=== PATIENT | female | born 1975 | race African-American/Black ===

== ENCOUNTER 2017-12-28 17:43 | Emergency (ER) | payer BC ==
[2017-12-28 17:53] VITALS: BP 180/108
--- NOTE | 2017-12-28 18:03 | EDM.PDOC ---
ED HPI GENERAL MEDICAL PROBLEM - General Chief Complaint: Chest Pain Stated Complaint: CHEST PAIN Time Seen by Provider: 12/28/17 17:58 Source of Information: Reports: Patient History Limitations: Reports: No Limitations - History of Present Illness INITIAL COMMENTS - FREE TEXT/NARRATIVE: 42-year-old female of -[place] descent presents to the ED with severe left anterior precordial chest pain. She states it started yesterday and has progressed in intensity over the last 24 hours. Today it hurts badly to take a deep breath. Has a sharp strong pleuritic component to the pain with a deep aching pain all the time. He states it makes her feel short of breath on minimal exertion. She is complaining diffusely of left leg pain up to her groin as well. No known injuries to the lower extremity. Recent travel history 3 weeks ago which was fairly extensive and could put her at risk for DVT. She is also markedly overweight. Had previous gastric bypass surgery. Has no known coronary disease. She is a never smoker. Denies cough or sputum production. Denies any fever or chills. No trauma to the chest wall. Onset: Gradual Onset Date: 12/27/17 (Appreciated left precordial chest discomfort yesterday afternoon.) Duration: Hour(s):, Getting Worse Location: Reports: Chest (Left precordial chest she's able to localize the pain well.) Quality: Reports: Ache, Sharp, Stabbing, Other (Pleuritic component to the pain as it worsens with deep breathing.) Severity: Moderate Improves with: Reports: Rest (Rates the pain as 7-8 out of 10.) Worsens with: Reports: Other (Deep breathing), Movement Context: Denies: Activity, Exercise, Lifting, Sick Contact, Trauma, Other Associated Symptoms: Reports: Chest Pain. Denies: No Other Symptoms, Confusion , Cough, cough w sputum, Diaphoresis (See history of present illness), Headaches , Loss of Appetite, Malaise, Nausea/Vomiting, Rash, Seizure, Shortness of Breath , Syncope, Weakness Treatments DIVER TENDER: Reports: Other (see below) (None.) Chest Pain Score (Numeric/FACES): 9 - Related Data Allergies Allergy/AdvReac Type Severity Reaction Status Date / Time amoxicillin [Amoxicillin] Allergy Hives Verified 12/28/17 17:49 chocolate flavor Allergy Anaphylactic Verified 12/28/17 17:49 Shock erythromycin base Allergy Hives Verified 12/28/17 17:49 [Erythromycin Base] Penicillins Allergy Hives Verified 12/28/17 17:49 venom-honey bee Allergy Anaphylactic Verified 12/28/17 17:49 [bee venom (honey bee)] Shock prochlorperazine AdvReac Fatigue Verified 12/28/17 17:49 Home Meds: Home Meds Cyanocobalamin (Vitamin B12) [Vitamin B12] 1,000 mcg PO DAILY 10/08/14 [History] Multivitamin [Multivitamins] 1 cap PO DAILY 10/08/14 [History] Albuterol Inhaler. 2 puff INH ASDIRECTED PRN 10/25/14 [History] Ambien. 10 mg PO DAILY 10/25/14 [History] Flexeril. 10 mg PO TID PRN 10/25/14 [History] Flonase Inhaler. 2 puff NASBOTH DAILY PRN 10/25/14 [History] Potassium. 20 meq PO DAILY 10/25/14 [History] Tramadol. 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: Psychiatric History: Reports: Anxiety - Past Surgical History GI Surgical History: Reports: Cholecystectomy Other GI Surgeries/Procedures: GASTRIC BYPASS Female Surgical History: Reports: Section Musculoskeletal Surgical History: Reports: Shoulder Surgery Social & Family History - Tobacco Use Smoking Status *Q: Never Smoker Month/Year Tobacco Last Used: 2008 Second Hand Smoke Exposure: No - Caffeine Use Caffeine Use: Reports: None - Alcohol Use Days Per Week of Alcohol Use: 0 - Recreational Drug Use Recreational Drug Use: No - Living Situation & Occupation Living situation: Reports: Single Occupation: Employed ED ROS GENERAL - Review of Systems Review Of Systems: See Below Constitutional: Denies: Fever, Chills, Malaise, Weakness, Fatigue, Decreased Appetite, Weight Loss HEENT: Reports: No Symptoms Respiratory: Reports: Shortness of Breath, Pleuritic Chest Pain. Denies: Wheezing, Cough (Left precordial chest), Sputum, Hemoptysis Cardiovascular: Reports: Chest Pain, Dyspnea on Exertion. Denies: Blood Pressure Problem, Claudication, Edema, Lightheadedness, Orthopnea Endocrine: Reports: No Symptoms GI/Abdominal: Reports: Other (Has had previous gastric bypass surgery.) : Reports: Frequency, Incontinence (Stress-induced) Musculoskeletal: Reports: Back Pain, Joint Pain (Knee pain. Currently having pain throughout her left leg she states from her foot to her groin.) Skin: Reports: No Symptoms Neurological: Reports: No Symptoms Psychiatric: Reports: No Symptoms Hematologic/Lymphatic: Reports: No Symptoms Immunologic: Reports: No Symptoms ED EXAM, GENERAL - Physical Exam Exam: See Below Exam Limited By: No Limitations General Appearance: Alert, WD/WN, Moderate Distress (Patient is very anxious. Her pressure is markedly elevated at 160 11/30/10 at this time) Eye Exam: Bilateral Eye: Normal Inspection Throat/Mouth: Normal Inspection, Normal Lips, Normal Teeth, Normal Oropharynx Head: Atraumatic, Normocephalic Neck: Normal Inspection, Supple, Non-Tender, Full Range of Motion. No: Lymphadenopathy (L), Lymphadenopathy (R) Respiratory/Chest: No Respiratory Distress, Lungs Clear, Normal Breath Sounds, No Accessory Muscle Use, Other (Patient is exquisitely tender to palpation ribs 345 and 6 midclavicular line on the left side. It also travels along the third fourth and fifth ribs laterally towards the axilla. There is no rashes to correlate with shingles.) Cardiovascular: Normal Peripheral Pulses, Regular Rate, Rhythm, No Edema, No Gallop, No Murmur, Other (Hypertensive.) GI/Abdominal: Other (Patient has had previous gastric bypass. Abdomen is distended) Back Exam: Normal Inspection, Full Range of Motion. No: CVA Tenderness (L), CVA Tenderness (R) Extremities: Normal Inspection, Normal Range of Motion, Non-Tender, No Pedal Edema, Normal Capillary Refill Neurological: Alert, Oriented, CN II-XII Intact, Normal Cognition Psychiatric: Anxious Skin Exam: Warm, Dry, Intact, Normal Color, No Rash EKG INTERPRETATION EKG Date: 12/28/17 Time: 17:52 Rhythm: Other Rate (Beats/Min): 116 [place]: LAD-Left [place] Deviation (Left axis deviation of -9.) P-Wave: Enlarged (Consider left atrial hypertrophy pattern.) QRS: Normal ST-T: Normal QT: Normal EKG Interpretation Comments: Borderline ECG. Course - Vital Signs Last Recorded V/S: Last Vital Signs Temp 36.1 C 12/28/17 17:49 Pulse 118 H 12/28/17 17:49 Resp 18 12/28/17 17:49 BP 180/108 H 12/28/17 17:49 Pulse Ox 100 12/28/17 17:49 - Orders/Labs/Meds Orders: Active Orders 24 hr Category Date Time Status EKG Documentation Completion [RC] STAT Care 12/28/17 18:09 Active Chest 1V Frontal [CR] Stat Exams 12/28/17 18:08 Taken Pelvis 1V or 2V [CR] Stat Exams 12/28/17 18:53 Taken PRO B-TYPE NATRIUR PEPT,BNPPRO [CHEM] Stat Lab 12/28/17 18:10 Received Ketorolac [Toradol] Med 12/28/17 18:15 Active 30 mg IVPUSH ONETIME Sodium Chloride 0.9% [Normal Saline] 1,000 ml Med 12/28/17 18:15 Active IV ASDIRECTED Medication Orders Sodium Chloride (Normal Saline) 1,000 mls @ 150 mls/hr IV ASDIRECTED CRISPIN Last Admin: 12/28/17 18:30 Dose: 150 mls/hr Ketorolac Tromethamine (Toradol) 30 mg IVPUSH ONETIME CRISPIN Labs: Laboratory Tests 12/28/17 12/28/17 12/28/17 Range/Units 18:10 18:10 18:10 WBC 8.47 (3.98-10.04) K/mm3 RBC 4.35 (3.98-5.22) M/mm3 Hgb 13.0 (11.2-15.7) gm/L Hct 39.7 (34.1-44.9) % MCV 91.3 (79.4-94.8) fl MCH 29.9 (25.6-32.2) pg MCHC 32.7 (32.2-35.5) g/dl RDW Std Deviation 46.0 (36.4-46.3) fL Plt Count 374 H (182-369) K/mm3 MPV 9.2 L (9.4-12.3) fl Neutrophils % (Manual) 36 L (40-60) % Band Neutrophils % 0 (0-10) % Lymphocytes % (Manual) 55 H (20-40) % Atypical Lymphs % 0 % Monocytes % (Manual) 2 (2-10) % Eosinophils % (Manual) 7 H (0.7-5.8) % Basophils % (Manual) 0 L (0.1-1.2) Platelet Estimate Adequate Plt Morphology Comment Normal RBC Morph Comment Normal PT (8.0-13.0) SECONDS INR D-Dimer, Quantitative (0.19-0.59) mg/L Sodium 142 (136-145) mEq/L Potassium 3.3 L (3.5-5.1) mEq/L Chloride 104 (98-107) mEq/L Carbon Dioxide 29 (21-32) mEq/L Anion Gap 12.3 (5-15) BUN 22 H (7-18) mg/dL Creatinine 0.9 (0.55-1.02) mg/dL Est Cr Clr Drug Dosing 77.57 mL/min Estimated GFR (MDRD) > 60 (>60) mL/min BUN/Creatinine Ratio 24.4 H (14-18) Glucose 88 (74-106) mg/dL Calcium 8.8 (8.5-10.1) mg/dL Total Bilirubin 0.1 L (0.2-1.0) mg/dL AST 19 (15-37) U/L ALT 33 (14-59) U/L Alkaline Phosphatase 69 (46-116) U/L Creatine Kinase 114 (26-192) U/L CK-MB (CK-2) 0.6 (0-3.6) ng/ml Troponin I < 0.017 (0.00-0.056) ng/mL C-Reactive Protein 0.5 (<1.0) mg/dL Total Protein 6.8 (6.4-8.2) g/dl Albumin 3.4 (3.4-5.0) g/dl Globulin 3.4 gm/dL Albumin/Globulin Ratio 1.0 (1-2) 12/28/17 12/28/17 Range/Units 18:30 18:30 WBC (3.98-10.04) K/mm3 RBC (3.98-5.22) M/mm3 Hgb (11.2-15.7) gm/L Hct (34.1-44.9) % MCV (79.4-94.8) fl MCH (25.6-32.2) pg MCHC (32.2-35.5) g/dl RDW Std Deviation (36.4-46.3) fL Plt Count (182-369) K/mm3 MPV (9.4-12.3) fl Neutrophils % (Manual) (40-60) % Band Neutrophils % (0-10) % Lymphocytes % (Manual) (20-40) % Atypical Lymphs % % Monocytes % (Manual) (2-10) % Eosinophils % (Manual) (0.7-5.8) % Basophils % (Manual) (0.1-1.2) Platelet Estimate Plt Morphology Comment RBC Morph Comment PT 9.7 (8.0-13.0) SECONDS INR 0.91 D-Dimer, Quantitative 0.48 (0.19-0.59) mg/L Sodium (136-145) mEq/L Potassium (3.5-5.1) mEq/L Chloride (98-107) mEq/L Carbon Dioxide (21-32) mEq/L Anion Gap (5-15) BUN (7-18) mg/dL Creatinine (0.55-1.02) mg/dL Est Cr Clr Drug Dosing mL/min Estimated GFR (MDRD) (>60) mL/min BUN/Creatinine Ratio (14-18) Glucose (74-106) mg/dL Calcium (8.5-10.1) mg/dL Total Bilirubin (0.2-1.0) mg/dL AST (15-37) U/L ALT (14-59) U/L Alkaline Phosphatase (46-116) U/L Creatine Kinase (26-192) U/L CK-MB (CK-2) (0-3.6) ng/ml Troponin I (0.00-0.056) ng/mL C-Reactive Protein (<1.0) mg/dL Total Protein (6.4-8.2) g/dl Albumin (3.4-5.0) g/dl Globulin gm/dL Albumin/Globulin Ratio (1-2) Meds: Medications Generic Name Dose Route Start Last Admin Trade Name Freq PRN Reason Stop Dose Admin Sodium Chloride 1,000 mls @ 150 mls/hr 12/28/17 18:15 12/28/17 18:30 Normal Saline IV 150 mls/hr ASDIRECTED CRISPIN Administration Ketorolac Tromethamine 30 mg 12/28/17 18:15 Toradol IVPUSH ONETIME CRISPIN Discontinued Medications Generic Name Dose Route Start Last Admin Trade Name Freq PRN Reason Stop Dose Admin Hydromorphone HCl 1 mg 12/28/17 18:06 12/28/17 18:33 Dilaudid IVPUSH 12/28/17 18:07 1 mg ONETIME ONE Administration Lorazepam 0.5 mg 12/28/17 18:07 12/28/17 18:28 Ativan IVPUSH 12/28/17 18:08 0.5 mg ONETIME ONE Administration Meperidine HCl 50 mg 12/28/17 19:10 Demerol IVPUSH 12/28/17 19:11 ONETIME ONE Methylprednisolone Sodium Succinate 125 mg 12/28/17 18:55 Solu-Medrol IVPUSH 12/28/17 18:56 ONETIME ONE - Radiology Interpretation Free Text/Narrative:: 42-year-old female presents to the ED with left precordial chest pain 2 days. States it's become more intense today more constant. Does have a pleuritic component or it worsens with deep inspiration. Denies cough or sputum production fever or chills. One chest wall injury. ECG done by triage nurse shows sinus tachycardia at 1 16/m with no signs of ischemia. Examination reveals clear lung figueredo heart is sinus with any murmurs. Chest wall is exquisitely tender to palpation on ribs 34 and 5 and 6 on the left side midclavicular line. No shingles rash identified. Clinically she is suffering quite significant chest wall pain. Will be given Toradol 30 mg IV Ativan 0.5 mg IV as she is extremely anxious and blood pressure is quite high. Not known to be hypertensive. We'll also give Dilaudid 1 mg IV for pain relief. Plan routine labs in one view chest x-ray to be done. - Re-Assessments/Exams Free Text/Narrative Re-Assessment/Exam: 12/28/17 18:34 Portable chest x-ray reveals poor inspirational view with compression of the lungs. This gives the impression of diffuse vascular congestion pattern. A BNP done to ensure there is no evidence of congestive failure. 12/28/17 18:56 patient states that she really doesn't feel any better after IV analgesia. BP is improved to 151/89. She states that shakes quite badly in her upper thighs and groins and in her lower back. Therefore I did reexamine her in the standing position. She does have some diffuse mild facet joint inflammation or tenderness L4-L5 and L5-S1 bilaterally. There is marked tenderness throughout the inferior portion of the left sacroiliac joint on examination mild tenderness on the right SI joint. I will how one view of the pelvis done. We'll give her Solu-Medrol 125 mg IV to relieve inflammation. Demerol 50mg IV for further pain relief. 12/28/17 19:28 x-rays of the pelvis reveal mild sclerosis of the superior aspects of the acetabulum with early degenerative arthritic changes present. However no other disease process is evident in the SI joints or pelvis or proximal femurs. 12/28/17 19:29 labs are back.White count is 8.47 with 36% neutrophils and 55% lymphocytes suggesting a viral infection. Hemoglobin is 13.0 with hematocrit of 39.7. Platelet count is 374,000. PT is 9.7 with an INR of 0.91D dimer is normal at 0.48. Sodium is 142 with a potassium of 3.3. Chloride is 104 with a bicarbonate of 29. Anion gap is normal at 12.3 BUN is minimally elevated at 22 with a creatinine of 0.9. GFR remains greater than 60. Glucose is 88 calcium is 8.8. Liver function normal. Cardiac markers are also normal with a CK-MB fraction of 0.6 and a troponin I of less than 0.017. Therefore all this lady appears to be experiencing a viral syndrome. She has exquisite chest wall pain from ribs 345 and 6 left anterior chest. No evidence of any sinister pathology with a normal d-dimer and normal cardiac markers and normal ECG and normal chest x-ray. She has bilateral thigh pain and groin pain which seems to be musculoskeletal in origin. No apple juice identified on x-ray of the pelvis and proximal femurs. May be related to the viral syndrome. She does seem to have a component of sacroiliitis particularly involving the left sacroiliac joint. Therefore going to place her on anti-inflammatory Voltaren 50 mg 3 times daily for the next 10 days. Prednisone 20 mg a.m. and p.m. breakfast and supper for 5 days and then once a day in the morning for another 5 days to relieve inflammation of the chest wall as well as the sacroiliac joint. We'll also give her Percocet 5/3/25 milligram tabs one or 2 every 4-6 hours needed for pain relief 20 tabs. Will be given to excuse her from the work place for the next 3 days. Departure - Departure Time of Disposition: 19:39 Disposition: Home, Self-Care 01 Condition: Fair Clinical Impression: Viral syndrome, Non-cardiac chest pain, Anterior chest wall pain, Sacroiliitis Prescriptions: Diclofenac Sodium [Voltaren] 50 mg PO TID #30 tab.ec oxyCODONE HCl/Acetaminophen [Percocet 10-325 mg Tablet] 1 each PO Q4H PRN #20 tablet PRN Reason: pain relief predniSONE [Deltasone] 20 mg PO ASDIRECTED #15 tablet Referrals: Case Estrella MD [Primary Care Provider] - Forms: ED Department Discharge, ED Return to Work/School Form Additional Instructions: Evaluation the emergency room today in regards to left precordial chest pain for the last 2 days. Pain gradually worsening particular noted today. No known specific injury to the chest wall. Emanation reveals good air entry to both lung figueredo normal heart sounds a normal ECG. Chest x-ray also proved to be normal. You were found to be exquisitely tender to touch of ribs 345 and 6 on the left anterior chest wall which I believe is the source of the pain. This appears to be viral in origin with inflammation of the lining of the ribs in this area. This is been quite calm in the last several weeks through the ED. It often occurs when other viral infections are running rampant in the community such as influenza and RSV virus infections. Secondly diffuse lower extremity pain particularly in the thighs and groins and in the deep muscles of the legs. There was a component of inflammation of the sacroiliac joint worse on the left side as compared to the right which may be contributing to the deep aching pain in the right leg. No signs of muscle abnormalities were identified and lab work. The lab suggest a viral infection with a normal white count at 8.7 but 55 % lymphocytes were is normal would be 35. Treatment is therefore time to get better. Plenty of fluids. Suggest anti-inflammatory with Voltaren 50 mg 3 times daily for the next 10 days to take pain and inflammation out of your chest wall and you SI joints. Deltasone 20 mg with breakfast and supper for 5 days and then one in the morning only for another 5 days again to relieve pain and inflammation. Percocet 10/325 mg tablets one every 4-6 hours for pain not controlled by the anti-inflammatories alone. Will be required for the next 2-3 days until the anti-inflammatories are working well. Just off work until MondayJanuary 01. Follow-up with personal physician early next week if not markedly improved. - My Orders Last 24 Hours: My Active Orders 12/28/17 18:08 Chest 1V Frontal [CR] Stat 12/28/17 18:09 EKG Documentation Completion [RC] STAT 12/28/17 18:10 PRO B-TYPE NATRIUR PEPT,BNPPRO [CHEM] Stat 12/28/17 18:15 Ketorolac [Toradol] 30 mg IVPUSH ONETIME Sodium Chloride 0.9% [Normal Saline] 1,000 ml IV ASDIRECTED 12/28/17 18:53 Pelvis 1V or 2V [CR] Stat - Assessment/Plan Last 24 Hours: My Active Orders 12/28/17 18:08 Chest 1V Frontal [CR] Stat 12/28/17 18:09 EKG Documentation Completion [RC] STAT 12/28/17 18:10 PRO B-TYPE NATRIUR PEPT,BNPPRO [CHEM] Stat 12/28/17 18:15 Ketorolac [Toradol] 30 mg IVPUSH ONETIME Sodium Chloride 0.9% [Normal Saline] 1,000 ml IV ASDIRECTED 12/28/17 18:53 Pelvis 1V or 2V [CR] Stat
[2017-12-28] MEDS ORDERED: HYDROmorphone 0.5 MG/0.5 ML SYRINGE IVPUSH ONE (18:06)
[2017-12-28] MEDS ORDERED: LORazepam 2 MG/ML SDV IVPUSH ONE (18:07)
[2017-12-28] MEDS ORDERED: Sodium Chloride 0.9% 1,000 ML IV SCH (18:15)
[2017-12-28] MEDS ORDERED: Ketorolac 30 MG/ML SDV IVPUSH SCH (18:15)
[2017-12-28] MEDS ORDERED: methylPREDNISolone Sodium Succinate 125 MG/2 ML SDV IVPUSH ONE (18:55)
[2017-12-28] MEDS ORDERED: Meperidine PF 50 MG/ML Syringe IVPUSH ONE (19:10)
--- NOTE | 2017-12-29 07:58 | CR ---
Pelvis: AP view of the pelvis was obtained. Comparison: No prior pelvis or hip exam is available. IUD is incidentally noted within the pelvis. Joint spaces within both hips are maintained. Sacroiliac joints are within normal limits. No fracture or other bony abnormality is seen. Impression: 1. No abnormality is seen on AP pelvis exam. Diagnostic code #2
--- NOTE | 2017-12-29 07:58 | CR ---
Chest: Portable view of the chest was obtained. Comparison: Prior chest x-ray of 09/24/15. Heart size is within normal limits for portable technique. Tortuous thoracic aorta is seen. Nodule is identified within the right lung base which is stable likely representing granuloma. No acute lung densities are seen. Bony structures are grossly intact. Previous resection of the distal right clavicle is incidentally noted. Impression: 1. Nothing acute is seen on portable chest x-ray. Diagnostic code #2
== END 2017-12-28 20:00 | disposition home or self-care (01) ==
LOC: JD.ED 17:43
DX: R07.2 Precordial pain (principal); B34.9 Viral infection, unspecified; M46.1 Sacroiliitis, not elsewhere classified; I10 Essential (primary) hypertension; Z98.84 Bariatric surgery status; Z88.8 Allergy status to other drugs, medicaments and biological substances; Z88.1 Allergy status to other antibiotic agents; Z91.030 Bee allergy status; Z79.899 Other long term (current) drug therapy; Z90.49 Acquired absence of other specified parts of digestive tract
CPT/HCPCS: 36415; 71045; 72170; 80053; 82550; 82553; 83880; 84484; 85025; 85379; 85610; 86140; 93005; 96361; 96374; 96375; 99285; J1170; J1885; J2060; J2175; J2930; J7040; 93010; 99284-25

== ENCOUNTER 2018-04-01 19:35 | Emergency (ER) | payer BC ==
[2018-04-01] MEDS ORDERED: predniSONE 20 MG Tab PO ONE (20:59)
--- NOTE | 2018-04-01 21:06 | EDM.PDOC ---
ED HPI GENERAL MEDICAL PROBLEM - General Chief Complaint: General Stated Complaint: SWELLING IN FACE Time Seen by Provider: 04/01/18 20:26 Source of Information: Reports: Patient History Limitations: Reports: No Limitations - History of Present Illness INITIAL COMMENTS - FREE TEXT/NARRATIVE: The patient states that she was seen by the nurse discharge Dr. Horton on 2017. Skin tests were done, and the patient was diagnosed with allergic rhinitis. He prescribed the antihistamine eyedrop olopatadine, nasal Flonase, and recommended that the patient start taking a nonsedating antihistamine. The patient now presents with a complaint of painful swelling under her right eye and a painful swelling just anterior to her right ear, both since yesterday. She states that her face and eyes are itchy. She denies having a recent rash or hives. No symptoms of angioedema. No dyspnea or wheezing. She states that she took Claritin 2 days ago, Zyrtec yesterday, and Yamileth-D today. None helped. The patient states that she has had similar symptoms twice in the past, which prompted her to see Dr. Horton in the first place. Of note, the patient takes tramadol on an as-needed basis, for chronic right shoulder pain. The patient's PCP is Dr. Estrella. Face Pain Score (Numeric/FACES): 8 - Related Data Allergies Allergy/AdvReac Type Severity Reaction Status Date / Time amoxicillin [Amoxicillin] Allergy Hives Verified 12/28/17 17:49 chocolate flavor Allergy Anaphylactic Verified 12/28/17 17:49 Shock erythromycin base Allergy Hives Verified 12/28/17 17:49 [Erythromycin Base] Penicillins Allergy Hives Verified 12/28/17 17:49 venom-honey bee Allergy Anaphylactic Verified 12/28/17 17:49 [bee venom (honey bee)] Shock prochlorperazine AdvReac Fatigue Verified 12/28/17 17:49 Home Meds: Home Meds Multivitamin [Multivitamins] 1 cap PO DAILY 10/08/14 [History] Fluticasone Propionate [Flonase Allergy Relief] 2 spray INH DAILY 04/01/18 [ History] Potassium Chloride 20 meq PO DAILY 04/01/18 [History] predniSONE [Prednisone] 1 tab PO QPM #4 tablet 04/01/18 [Rx] traMADol HCl [Tramadol HCl] 50 mg PO Q6H PRN 04/01/18 [History] Past Medical History HEENT History: Reports: Allergic Rhinitis Genitourinary History: Reports: Acute Renal Failure (associated with gastric bypass surgery, since resolved) 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: Psychiatric History: Reports: Anxiety Endocrine/Metabolic History: Reports: Obesity/BMI 30+ - Past Surgical History GI Surgical History: Reports: Appendectomy (1980), Bariatric Procedure (Gastric bypass September 2016), Cholecystectomy Female Surgical History: Reports: Section (x 4), Tubal Ligation ( 2003) Musculoskeletal Surgical History: Reports: Shoulder Surgery (right, arthroscopic ) Social & Family History - Tobacco Use Smoking Status *Q: Former Smoker Years of Tobacco use: 24 Packs/Tins Daily: 0.4 Month/Year Tobacco Last Used: Quit Sep 2016 - Caffeine Use Caffeine Use: Reports: None - Alcohol Use Alcohol Use History: Yes Alcohol Use Frequency: Rarely - Recreational Drug Use Recreational Drug Use: No - Living Situation & Occupation Living situation: Reports: Single, with Family (3 kids) Occupation: Employed ([employer]) ED ROS GENERAL - Review of Systems Review Of Systems: ROS reveals no pertinent complaints other than HPI. ED EXAM, GENERAL - Physical Exam Exam: See Below Exam Limited By: No Limitations General Appearance: Alert, WD/WN, No Apparent Distress Eye Exam: Bilateral Eye: EOMI, Normal Inspection, PERRL Ears: Normal External Exam, Normal Canal, Hearing Grossly Normal, Normal TMs Nose: Normal Inspection, Normal Mucosa, No Blood Throat/Mouth: Normal Inspection, Normal Lips, Normal Teeth, Normal Gums, Normal Oropharynx, Normal Voice, No Airway Compromise Head: Normocephalic, Other (No visible swelling to the face, including under the right eye, as the patient suggest. There is a palpable firm nodule, measuring less than 1 cm diameter, just anterior to the right ear, consistent with a lymph node. It is quite tender.) Neck: Normal Inspection, Supple, Non-Tender, Full Range of Motion. No: Lymphadenopathy (L), Lymphadenopathy (R) Respiratory/Chest: No Respiratory Distress, Lungs Clear, Normal Breath Sounds, No Accessory Muscle Use Cardiovascular: Normal Peripheral Pulses, Regular Rate, Rhythm, No Edema, No Gallop, No JVD, No Murmur, No Rub Neurological: Alert, Normal Cognition Psychiatric: Normal Affect Skin Exam: Warm, Dry, Intact, Normal Color, No Rash Course - Orders/Labs/Meds Meds: Medications Discontinued Medications Generic Name Dose Route Start Last Admin Trade Name Emperatriz CHAO Reason Stop Dose Admin Prednisone 20 mg 04/01/18 20:59 04/01/18 21:10 Prednisone PO 04/01/18 21:00 20 mg ONETIME ONE Administration - Re-Assessments/Exams Free Text/Narrative Re-Assessment/Exam: 04/01/18 20:59 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 On examination, I see no facial swelling whatsoever, but there is a palpable lymph node anterior to her right ear. She complains of pruritus. It is unclear what the cause of the symptoms is, but for today's purposes, I will treat the patient with 20 mg oral prednisone, followed by 4 days of prednisone 10 mg. I would like the patient to follow-up with her Big Data Solutions Architect, Dr. Horton, this week, if possible. If not, I would like her to follow-up with her PCP, Dr. Estrella. Departure - Departure Time of Disposition: 21:01 Disposition: Home, Self-Care 01 Condition: Good Clinical Impression: Right facial swelling - Discharge Information Prescriptions: predniSONE [Prednisone] 1 tab PO QPM #4 tablet Referrals: Case Estrella MD [Primary Care Provider] - Javi Horton MD [Ordering Only Provider] - Forms: ED Department Discharge Additional Instructions: You were seen in the emergency room for swelling under your right eye and by your right ear, along with itchiness to your face and eyes. The cause of your symptoms is not clear, but may be related to an allergic reaction. You have been started on the steroid prednisone. A prescription for prednisone has been sent to the [facility], located in the [place] store. Take one tablet every evening, starting tomorrow evening, 04/02/2018, as prescribed. Continue to take your Flonase and a nonsedating antihistamine, such as Zyrtec, Yamileth, or Claritin, daily. Follow-up with your Big Data Solutions Architect, Dr. Horton, this week. If you are unable to get in to see Dr. Horton this week, please follow-up with your PCP, Dr. Estrella. If any other problems, please do not hesitate to return to the ER.
== END 2018-04-01 21:13 | disposition home or self-care (01) ==
LOC: JD.ED 19:35
DX: R22.0 Localized swelling, mass and lump, head (principal); F41.9 Anxiety disorder, unspecified; Z88.0 Allergy status to penicillin; Z88.1 Allergy status to other antibiotic agents; Z91.030 Bee allergy status; Z79.899 Other long term (current) drug therapy; Z87.891 Personal history of nicotine dependence
CPT/HCPCS: 99283; A9270

== ENCOUNTER 2018-10-29 23:51 | Emergency (ER) | payer BC ==
[2018-10-30 00:05] VITALS: BP 135/87
[2018-10-30] MEDS ORDERED: Sodium Chloride 0.9% 10 ML Syringe FLUSH PRN (00:12)
[2018-10-30] MEDS ORDERED: Ondansetron 4 MG/2 ML SDV IVPUSH ONE (00:12)
[2018-10-30] MEDS ORDERED: Ketorolac 30 MG/ML SDV IVPUSH ONE (00:13)
[2018-10-30] MEDS ORDERED: Sodium Chloride 0.9% 1,000 ML IV SCH (00:15)
--- NOTE | 2018-10-30 00:41 | EDM.PDOC ---
ED HPI GENERAL MEDICAL PROBLEM - General Chief Complaint: Abdominal Pain Stated Complaint: LOWER ABDOMINAL AND BACK PAIN LEFT SIDE Time Seen by Provider: 10/30/18 00:02 Source of Information: Reports: Patient History Limitations: Reports: No Limitations - History of Present Illness INITIAL COMMENTS - FREE TEXT/NARRATIVE: The patient presents with left lower abdominal pain that radiates to the left flank. She has nausea or vomiting. This started about 2 days ago. She has some dysuria. This started about 2 days ago. She has a history of a kidney stone that needed surgery last year. She has no chest pain or shortness of breath. She has no appendix or gallbladder. Onset: Gradual Duration: Day(s): (2) Location: Reports: Abdomen, Back Quality: Reports: Sharp Severity: Moderate Improves with: Reports: None Worsens with: Reports: None Associated Symptoms: Reports: Nausea/Vomiting. Denies: Chest Pain, Cough, Fever /Chills, Headaches, Shortness of Breath Lower Abdomen Pain Score (Numeric/FACES): 9 - Related Data Allergies Allergy/AdvReac Type Severity Reaction Status Date / Time amoxicillin [Amoxicillin] Allergy Hives Verified 10/30/18 00:06 chocolate flavor Allergy Anaphylactic Verified 10/30/18 00:06 Shock erythromycin base Allergy Hives Verified 10/30/18 00:06 [Erythromycin Base] Penicillins Allergy Hives Verified 10/30/18 00:06 venom-honey bee Allergy Anaphylactic Verified 10/30/18 00:06 [bee venom (honey bee)] Shock prochlorperazine AdvReac Fatigue Verified 10/30/18 00:06 Home Meds: Home Meds Multivitamin [Multivitamins] 1 cap PO DAILY 10/08/14 [History] Fluticasone Propionate [Flonase Allergy Relief] 2 spray INH DAILY 04/01/18 [ History] Potassium Chloride 20 meq PO DAILY 04/01/18 [History] traMADol HCl [Tramadol HCl] 50 mg PO Q6H PRN 04/01/18 [History] Hydrocodone/Acetaminophen [Hydrocodon-Acetaminophen 5-325] 1 - 2 each PO Q6HR PRN #20 tablet 10/30/18 [Rx] Lisinopril 40 mg PO DAILY 10/30/18 [History] Past Medical History HEENT History: Reports: Allergic Rhinitis Cardiovascular History: Reports: Hypertension Respiratory History: Reports: Other (See Below) Other Respiratory History: seasonal allergies Genitourinary History: Reports: Acute Renal Failure 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: Psychiatric History: Reports: Anxiety Endocrine/Metabolic History: Reports: Obesity/BMI 30+ - Past Surgical History GI Surgical History: Reports: Appendectomy, Bariatric Procedure, Cholecystectomy Female Surgical History: Reports: Section, Tubal Ligation Musculoskeletal Surgical History: Reports: Shoulder Surgery Social & Family History - Tobacco Use Smoking Status *Q: Never Smoker - Caffeine Use Caffeine Use: Reports: None - Recreational Drug Use Recreational Drug Use: No - Living Situation & Occupation Living situation: Reports: Single, with Family (3 kids) Occupation: Employed ([employer]) ED ROS GENERAL - Review of Systems Review Of Systems: See Below Constitutional: Reports: No Symptoms HEENT: Reports: No Symptoms Respiratory: Reports: No Symptoms Cardiovascular: Reports: No Symptoms Endocrine: Reports: No Symptoms GI/Abdominal: Reports: Abdominal Pain, Nausea, Vomiting. Denies: Diarrhea : Reports: No Symptoms Musculoskeletal: Reports: Back Pain (Left lower back) ED EXAM, GI/ABD - Physical Exam Exam: See Below Exam Limited By: No Limitations General Appearance: Alert, No Apparent Distress Ears: Normal External Exam Nose: Normal Inspection Head: Atraumatic, Normocephalic Neck: Normal Inspection Respiratory/Chest: No Respiratory Distress, Lungs Clear, Normal Breath Sounds Cardiovascular: Regular Rate, Rhythm, No Edema, No Murmur GI/Abdominal Exam: Soft, No Organomegaly, No Mass, Tender (Mild tenderness to the left lower abdomen) Back Exam: Other (Left lower back pain upon palpation) Course - Vital Signs Last Recorded V/S: Last Vital Signs Temp 96.5 F 10/30/18 00:03 Pulse 87 10/30/18 00:03 Resp 16 10/30/18 00:03 BP 135/87 10/30/18 00:03 Pulse Ox 99 10/30/18 00:03 - Orders/Labs/Meds Orders: Active Orders 24 hr Category Date Time Status Peripheral IV Care [RC] . DIRECTED Care 10/30/18 00:12 Active Abdomen Pelvis wo Cont [CT] Stat Exams 10/30/18 00:12 Taken Transvaginal Non OB [US] Stat Exams 10/30/18 01:50 Taken HYDROmorphone [Dilaudid] Med 10/30/18 03:51 Once 0.5 mg IVPUSH ONETIME ONE Sodium Chloride 0.9% [Normal Saline] 1,000 ml Med 10/30/18 00:15 Active IV ASDIRECTED Sodium Chloride 0.9% [Saline Flush] Med 10/30/18 00:12 Active 10 ml FLUSH ASDIRECTED PRN ED Antiemetic Medication Reflex [OM.PC] Stat Oth 10/30/18 00:12 Ordered Peripheral IV Insertion Adult [OM.PC] Stat Ot 10/30/18 00:12 Ordered Medication Orders Sodium Chloride (Normal Saline) 1,000 mls @ 125 mls/hr IV ASDIRECTED CRISPIN Last Admin: 10/30/18 00:24 Dose: 125 mls/hr Sodium Chloride (Saline Flush) 10 ml FLUSH ASDIRECTED PRN PRN Reason: Keep Vein Open Last Admin: 10/30/18 00:26 Dose: 10 ml Labs: Laboratory Tests 10/30/18 10/30/18 10/30/18 Range/Units 00:20 00:20 00:20 WBC 9.38 (3.98-10.04) K/mm3 RBC 4.18 (3.98-5.22) M/mm3 Hgb 11.6 (11.2-15.7) gm/L Hct 36.2 (34.1-44.9) % MCV 86.6 (79.4-94.8) fl MCH 27.8 (25.6-32.2) pg MCHC 32.0 L (32.2-35.5) g/dl RDW Std Deviation 46.4 H (36.4-46.3) fL Plt Count 408 H (182-369) K/mm3 MPV 8.5 L (9.4-12.3) fl Neut % (Auto) 47.6 (34.0-71.1) % Lymph % (Auto) 42.5 (19.3-51.7) % Crosby % (Auto) 5.9 (4.7-12.5) % Eos % (Auto) 3.5 (0.7-5.8) Baso % (Auto) 0.4 (0.1-1.2) % Neut # (Auto) 4.46 (1.56-6.13) K/mm3 Lymph # (Auto) 3.99 H (1.18-3.74) K/mm3 Crosby # (Auto) 0.55 H (0.24-0.36) K/mm3 Eos # (Auto) 0.33 (0.04-0.36) K/mm3 Baso # (Auto) 0.04 (0.01-0.08) K/mm3 Sodium 138 (136-145) mEq/L Potassium 3.6 (3.5-5.1) mEq/L Chloride 105 (98-107) mEq/L Carbon Dioxide 22 (21-32) mEq/L Anion Gap 14.6 (5-15) BUN 20 H (7-18) mg/dL Creatinine 0.8 (0.55-1.02) mg/dL Est Cr Clr Drug Dosing TNP Estimated GFR (MDRD) > 60 (>60) mL/min BUN/Creatinine Ratio 25.0 H (14-18) Glucose 85 (74-106) mg/dL Calcium 8.7 (8.5-10.1) mg/dL Total Bilirubin 0.2 (0.2-1.0) mg/dL AST 30 (15-37) U/L ALT 37 (14-59) U/L Alkaline Phosphatase 70 (46-116) U/L Total Protein 7.3 (6.4-8.2) g/dl Albumin 3.5 (3.4-5.0) g/dl Globulin 3.8 gm/dL Albumin/Globulin Ratio 0.9 L (1-2) Lipase 484 H (73-393) U/L HCG, Qual Negative (NEGATIVE) Urine Color (Yellow) Urine Appearance (Clear) Urine pH (5.0-8.0) Ur Specific [place] (1.005-1.030) Urine Protein (Negative) Urine Glucose (UA) (Negative) Urine Ketones (Negative) Urine Occult Blood (Negative) Urine Nitrite (Negative) Urine Bilirubin (Negative) Urine Urobilinogen (0.2-1.0) Ur Leukocyte Esterase (Negative) Urine RBC (0-5) /hpf Urine WBC (0-5) /hpf Ur Epithelial Cells (0-5) /hpf Calcium Oxalate Crystal (NONE) Urine Bacteria (FEW) /hpf Urine Mucus (FEW) /hpf 10/30/18 Range/Units 01:00 WBC (3.98-10.04) K/mm3 RBC (3.98-5.22) M/mm3 Hgb (11.2-15.7) gm/L Hct (34.1-44.9) % MCV (79.4-94.8) fl MCH (25.6-32.2) pg MCHC (32.2-35.5) g/dl RDW Std Deviation (36.4-46.3) fL Plt Count (182-369) K/mm3 MPV (9.4-12.3) fl Neut % (Auto) (34.0-71.1) % Lymph % (Auto) (19.3-51.7) % Crosby % (Auto) (4.7-12.5) % Eos % (Auto) (0.7-5.8) Baso % (Auto) (0.1-1.2) % Neut # (Auto) (1.56-6.13) K/mm3 Lymph # (Auto) (1.18-3.74) K/mm3 Crosby # (Auto) (0.24-0.36) K/mm3 Eos # (Auto) (0.04-0.36) K/mm3 Baso # (Auto) (0.01-0.08) K/mm3 Sodium (136-145) mEq/L Potassium (3.5-5.1) mEq/L Chloride (98-107) mEq/L Carbon Dioxide (21-32) mEq/L Anion Gap (5-15) BUN (7-18) mg/dL Creatinine (0.55-1.02) mg/dL Est Cr Clr Drug Dosing Estimated GFR (MDRD) (>60) mL/min BUN/Creatinine Ratio (14-18) Glucose (74-106) mg/dL Calcium (8.5-10.1) mg/dL Total Bilirubin (0.2-1.0) mg/dL AST (15-37) U/L ALT (14-59) U/L Alkaline Phosphatase (46-116) U/L Total Protein (6.4-8.2) g/dl Albumin (3.4-5.0) g/dl Globulin gm/dL Albumin/Globulin Ratio (1-2) Lipase (73-393) U/L HCG, Qual (NEGATIVE) Urine Color Yellow (Yellow) Urine Appearance Clear (Clear) Urine pH 6.0 (5.0-8.0) Ur Specific [place] 1.025 (1.005-1.030) Urine Protein Trace H (Negative) Urine Glucose (UA) Negative (Negative) Urine Ketones Trace H (Negative) Urine Occult Blood Trace-intact H (Negative) Urine Nitrite Negative (Negative) Urine Bilirubin Negative (Negative) Urine Urobilinogen 0.2 (0.2-1.0) Ur Leukocyte Esterase Negative (Negative) Urine RBC 0-5 (0-5) /hpf Urine WBC 0-5 (0-5) /hpf Ur Epithelial Cells 0-5 (0-5) /hpf Calcium Oxalate Crystal Few H (NONE) Urine Bacteria Few (FEW) /hpf Urine Mucus Few (FEW) /hpf Meds: Medications Generic Name Dose Route Start Last Admin Trade Name Freq PRN Reason Stop Dose Admin Sodium Chloride 1,000 mls @ 125 mls/hr 10/30/18 00:15 10/30/18 00:24 Normal Saline IV 125 mls/hr ASDIRECTED CRISPIN Administration Sodium Chloride 10 ml 10/30/18 00:12 10/30/18 00:26 Saline Flush FLUSH 10 ml ASDIRECTED PRN Administration Keep Vein Open Discontinued Medications Generic Name Dose Route Start Last Admin Trade Name Freq PRN Reason Stop Dose Admin Ketorolac Tromethamine 30 mg 10/30/18 00:13 10/30/18 00:25 Toradol IVPUSH 10/30/18 00:14 30 mg ONETIME ONE Administration Ondansetron HCl 4 mg 10/30/18 00:12 10/30/18 00:24 Zofran IVPUSH 10/30/18 00:13 4 mg ONETIME ONE Administration - Re-Assessments/Exams Free Text/Narrative Re-Assessment/Exam: 10/30/18 00:40 I ordered an IV NS at 125mL/hr, zofran 4mg IV, dilaudid 0.5mg IV, toradol 30mg IV, labs, UA and a CT of his abdomen and pelvis without contrast. 10/30/18 01:38 Her CBC and CMP look good. Her lipase is slightly elevated at 484. Her HCG is negative. He UA shows no UTI but she does have calcium oxilate crystals. I am waiting for the CT report. 10/30/18 01:[address] shows status post gastric bypass. Large left pelvic adnexal cysts measuring 6cm X 4.9cm. This is consistent with an ovarian cyst. This is new since the prior CT scan dated 08/24/2012, pelvic ultrasound suggested. IUD in good position within the mid uterus. Status post cholecystectomy. I have ordered a transvaginal ultrasound. 10/30/18 03:51 The US shows enlarged left ovary secondary to a 6.2 X 3.9 cm simple cyst. 2cm follicular right ovarian cyst. No evidence for torsion. NO evidence of free fluid. She still is having pain so I ordered dilaudid 0.5mg IV. I will discharge her and have her follow up with Dr Estrella and Dr Anderson. Departure - Departure Time of Disposition: 03:55 Disposition: Home, Self-Care 01 Condition: Good Clinical Impression: Ovarian cyst Qualifiers: Laterality: left Qualified Code(s): N83.202 - Unspecified ovarian cyst, left side - Discharge Information *PRESCRIPTION DRUG MONITORING PROGRAM REVIEWED*: No *COPY OF PRESCRIPTION DRUG MONITORING REPORT IN PATIENT RUDOLPH: No Prescriptions: Hydrocodone/Acetaminophen [Hydrocodon-Acetaminophen 5-325] 1 - 2 each PO Q6HR PRN #20 tablet PRN Reason: Pain Referrals: Case Estrella MD [Primary Care Provider] - 1 Week Bogdan Anderson MD [Physician] - 1 Week Forms: ED Department Discharge, ED Return to Work/School Form Additional Instructions: Take tylenol or motrin for pain. If that does not work, try the hydrocodone. Follow up with Dr Estrella and Dr Anderson. Dr Anderson is an MANAGER [employer] specialist. Please return if you are worse. - My Orders Last 24 Hours: My Active Orders 10/30/18 00:12 Peripheral IV Care [RC] . DIRECTED Abdomen Pelvis wo Cont [CT] Stat Sodium Chloride 0.9% [Saline Flush] 10 ml FLUSH ASDIRECTED PRN ED Antiemetic Medication Reflex [OM.PC] Stat Peripheral IV Insertion Adult [OM.PC] Stat 10/30/18 00:15 Sodium Chloride 0.9% [Normal Saline] 1,000 ml IV ASDIRECTED 10/30/18 01:50 Transvaginal Non OB [US] Stat 10/30/18 03:51 HYDROmorphone [Dilaudid] 0.5 mg IVPUSH ONETIME ONE - Assessment/Plan Last 24 Hours: My Active Orders 10/30/18 00:12 Peripheral IV Care [RC] . DIRECTED Abdomen Pelvis wo Cont [CT] Stat Sodium Chloride 0.9% [Saline Flush] 10 ml FLUSH ASDIRECTED PRN ED Antiemetic Medication Reflex [OM.PC] Stat Peripheral IV Insertion Adult [OM.PC] Stat 10/30/18 00:15 Sodium Chloride 0.9% [Normal Saline] 1,000 ml IV ASDIRECTED 10/30/18 01:50 Transvaginal Non OB [US] Stat 10/30/18 03:51 HYDROmorphone [Dilaudid] 0.5 mg IVPUSH ONETIME ONE
[2018-10-30] MEDS ORDERED: HYDROmorphone 1 MG/ML Syringe IVPUSH ONE (03:51)
--- NOTE | 2018-10-30 06:28 | CT ---
CT abdomen and pelvis Technique: Multiple axial sections were obtained from top the liver inferiorly through the pubic symphysis. Intravenous and oral contrast was not utilized. Study has been performed as a ureteral stone protocol. Findings: Two nonobstructing calculi are identified within the lower left kidney. Largest stone measures 6.6 mm. Right kidney shows no abnormal calcifications. No ureteral dilatation or ureteral stone is seen. Visualized lung bases show nothing acute. Noncontrast appearance of the liver and spleen appear within normal limits. Spleen shows an incidental small calcified granuloma. Previous stomach surgery is noted. Pancreas shows no discrete abnormality. Surgical clips are seen from prior cholecystectomy. Aorta shows no aneurysm. No retroperitoneal adenopathy is seen. Small fat-containing umbilical hernia is noted. IUD is present within the endometrial cavity of the uterus. Cystic area is seen within the left ovary measuring about 6.0 cm in greatest dimension. No additional pelvic abnormality is seen. Appendix is not definitely visualized. No free fluid or inflammatory change is seen. Bone window settings were reviewed which show mild scattered degenerative change. Impression: 1. Previous gastric surgery. 2. Large cyst within the left ovary measuring at least 6.0 cm. 3. Two nonobstructing calculi within the left kidney. No ureteral dilatation or ureteral stone is seen. 4. Other incidental findings. Diagnostic code #3 I agree with preliminary report from [facility], finalized on 10/30/18, 2:41 AM Central Time
--- NOTE | 2018-10-30 06:28 | US ---
Pelvic ultrasound: Multiple real-time images were obtained transvaginally. Technologist's note: Difficult scan/body habitus Uterus is anteverted. Multiple nabothian cysts are seen. Endometrial thickness is 8 mm. No discrete myometrial abnormality is appreciated. Left ovary shows 3 cysts. Largest cyst measures 6.2 x 3.2 x 3.9 cm. Right ovary shows a small cyst measuring 2.0 cm. No free fluid is seen. Measurements: Uterus: Length 11.4 cm, AP height 6.1 cm, transverse width 6.6 cm Right ovary: 5.0 x 3.5 x 4.2 cm Left ovary (contains cyst): 7.9 x 5.4 x 3.8 cm Impression: 1. Three cysts within the left ovary with largest measuring up to 6.2 cm. Small cyst measuring 2.0 cm within the right ovary. Follow-up pelvic ultrasound is recommended in 3-4 months. 2. Incidental nabothian cysts. No free fluid. Diagnostic code #3 I agree with preliminary report from [facility], finalized on 10/30/18, 4:47 AM Central Time
== END 2018-10-30 04:16 | disposition home or self-care (01) ==
LOC: JD.ED 23:51
DX: N83.202 Unspecified ovarian cyst, left side (principal); I10 Essential (primary) hypertension; Z88.1 Allergy status to other antibiotic agents; Z88.8 Allergy status to other drugs, medicaments and biological substances; Z91.018 Allergy to other foods; Z79.899 Other long term (current) drug therapy
CPT/HCPCS: 36415; 74176; 76830; 80053; 81001; 83690; 84703; 85025; 96361; 96374; 96375; 99284; J1170; J1885; J2405; J7040; 99283

== ENCOUNTER 2018-11-19 11:31 | Emergency (ER) | payer SELFPAY ==
[2018-11-19 11:47] VITALS: BP 132/82
--- NOTE | 2018-11-19 13:31 | CR ---
Chest: Two views of the chest were obtained. Comparison: Prior chest x-ray of 12/28/17 Heart size appears within normal limits. Tortuous thoracic aorta is seen. Nodule is noted within the right middle lobe compatible with granuloma. No acute parenchymal densities are seen. Minimal scarring is noted within the lateral left costophrenic angle. Bony structures appear within normal limits for the patient's age. Impression: 1. Incidental findings as described above. Nothing acute is appreciated. Diagnostic code #2
--- NOTE | 2018-11-19 14:05 | EDM.PDOC ---
ED HPI GENERAL MEDICAL PROBLEM - General Chief Complaint: [employer] Problem Stated Complaint: VAGINAL PAIN Time Seen by Provider: 11/19/18 12:11 Source of Information: Reports: Patient, RN Notes Reviewed History Limitations: Reports: No Limitations - History of Present Illness INITIAL COMMENTS - FREE TEXT/NARRATIVE: The patient states that she received a Mirena IUD about 3 years ago for heavy vaginal bleeding, not for control, as she underwent a tubal ligation in 2003, and also reports that she has not had sexual intercourse for 3 years. Since receiving the IUD, she has had relatively mild menstrual periods. She states that she started her usual menstrual period on 10/26/2018, and that it was light, as it usually is. It stopped around 10/30/2018, but then restarted , this time heavier. She states that she has been soaking 1 pad about every 1.5 hours. She has been experiencing pelvic cramps since 10/29/2018, which became worse today, prompting her to come to the ED. The patient also reports having left-sided chest pain today. It is constant, but pleuritic. It is burning in character. She states that she has had similar chest pain whenever she is anxious, but states that she does not feel anxious today. The patient states that it has been more than one year since she last saw a [employer]. She believes that she is going to be seeing Dr. Lofton. The patient's PCP is Dr. Estrella. 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 Left Lower Abdomen Pain Score (Numeric/FACES): 8 - Related Data Allergies Allergy/AdvReac Type Severity Reaction Status Date / Time amoxicillin [Amoxicillin] Allergy Hives Verified 11/19/18 11:39 chocolate flavor Allergy Anaphylactic Verified 11/19/18 11:39 Shock erythromycin base Allergy Hives Verified 11/19/18 11:39 [Erythromycin Base] Penicillins Allergy Hives Verified 11/19/18 11:39 venom-honey bee Allergy Anaphylactic Verified 11/19/18 11:39 [bee venom (honey bee)] Shock prochlorperazine AdvReac Fatigue Verified 11/19/18 11:39 Home Meds: Home Meds Multivitamin [Multivitamins] 1 cap PO DAILY 10/08/14 [History] Fluticasone Propionate [Flonase Allergy Relief] 2 spray INH DAILY 04/01/18 [ History] Potassium Chloride 20 meq PO DAILY 04/01/18 [History] traMADol HCl [Tramadol HCl] 50 mg PO Q6H PRN 04/01/18 [History] Hydrocodone/Acetaminophen [Hydrocodon-Acetaminophen 5-325] 1 - 2 each PO Q6HR PRN #20 tablet 10/30/18 [Rx] Doxycycline [Vibramycin] 1 cap PO Q12H #19 cap 11/19/18 [Rx] Past Medical History HEENT History: Reports: Allergic Rhinitis, Impaired Vision Genitourinary History: Reports: Acute Renal Failure (associated with her gastric bypass - since resolved), Renal Calculus [employer] History: Reports: Dysfunctional Uterine Bleeding, Psychiatric History: Reports: Anxiety Endocrine/Metabolic History: Reports: Obesity/BMI 30+ - Infectious Disease History Infectious Disease History: Reports: MRSA - Past Surgical History GI Surgical History: Reports: Appendectomy (1980), Bariatric Procedure (gastric bpass Sep 2016), Cholecystectomy (2009) Female Surgical History: Reports: Section (x 4), Tubal Ligation ( 2003), Ureteral Stent, Other (See Below) (Mirena IUD placed 2015) Musculoskeletal Surgical History: Reports: Shoulder Surgery (right, arthroscopic ) Social & Family History - Family History Family Medical History: Noncontributory - Tobacco Use Smoking Status *Q: Former Smoker Years of Tobacco use: 15 Packs/Tins Daily: 0.4 Month/Year Tobacco Last Used: Quit 2013 - Caffeine Use Caffeine Use: Reports: Coffee - Alcohol Use Alcohol Use History: No - Recreational Drug Use Recreational Drug Use: No - Living Situation & Occupation Living situation: Reports: Single, with Family (3 kids) 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 ED EXAM, GENERAL - Physical Exam Exam: See Below Exam Limited By: No Limitations General Appearance: Alert, WD/WN, No Apparent Distress Eye Exam: Bilateral Eye: EOMI, Normal Inspection Ears: Normal External Exam, Hearing Grossly Normal Nose: Normal Inspection Throat/Mouth: Normal Inspection, Normal Lips, Normal Voice, No Airway Compromise Head: Atraumatic, Normocephalic Neck: Normal Inspection, Full Range of Motion Respiratory/Chest: No Respiratory Distress, Lungs Clear, Normal Breath Sounds, No Accessory Muscle Use, Other (Reproducible tenderness to palpation of the left pectoralis muscle) Cardiovascular: Normal Peripheral Pulses, Regular Rate, Rhythm, No Gallop, No JVD, No Murmur, No Rub Peripheral Pulses: 4+: Radial (L), Radial (R) GI/Abdominal: Normal Bowel Sounds, Soft, No Organomegaly, No Distention, No Abnormal Bruit, No Mass, Tender (to left pelvis only. Nontender elsewhere.), Other (Obese) (Female) Exam: Normal External Exam, Vaginal Bleeding (minimal), Other (IUD string seen from cervical os, but IUD body not protruding). No: Cervical Discharge, Cervical Lesions Rectal (Female) Exam: Deferred Back Exam: Normal Inspection, Full Range of Motion. No: CVA Tenderness (L), CVA Tenderness (R) Extremities: Normal Inspection, Normal Range of Motion, No Pedal Edema, Normal Capillary Refill Neurological: Alert, Oriented, Normal Cognition, No Motor/Sensory Deficits Psychiatric: Normal Affect Skin Exam: Warm, Dry, Intact, Normal Color, No Rash Course - Vital Signs Last Recorded V/S: Last Vital Signs Temp 36.3 C 11/19/18 11:46 Pulse 93 11/19/18 11:46 Resp 18 11/19/18 11:46 BP 132/82 11/19/18 11:46 Pulse Ox 99 11/19/18 11:46 - Orders/Labs/Meds Labs: Laboratory Tests 11/19/18 Range/Units 13:25 WBC 6.60 (3.98-10.04) K/mm3 RBC 3.81 L (3.98-5.22) M/mm3 Hgb 10.4 L (11.2-15.7) gm/L Hct 33.0 L (34.1-44.9) % MCV 86.6 (79.4-94.8) fl MCH 27.3 (25.6-32.2) pg MCHC 31.5 L (32.2-35.5) g/dl RDW Std Deviation 46.9 H (36.4-46.3) fL Plt Count 391 H (182-369) K/mm3 MPV 8.7 L (9.4-12.3) fl Neutrophils % (Manual) 50 (40-60) % Band Neutrophils % 0 (0-10) % Lymphocytes % (Manual) 44 H (20-40) % Atypical Lymphs % 0 % Monocytes % (Manual) 4 (2-10) % Eosinophils % (Manual) 2 (0.7-5.8) % Basophils % (Manual) 0 L (0.1-1.2) Platelet Estimate Adequate Plt Morphology Comment Normal Hypochromasia Few Basophilic Stippling Rare Schistocytes Rare RBC Morph Comment Not Reportable Meds: Medications Discontinued Medications Generic Name Dose Route Start Last Admin Trade Name Emperatriz PRN Reason Stop Dose Admin Doxycycline Hyclate 100 mg 11/19/18 15:26 11/19/18 15:45 Vibramycin PO 11/19/18 15:27 100 mg ONETIME ONE Administration - Re-Assessments/Exams Free Text/Narrative Re-Assessment/Exam: 11/19/18 14:04 Two-view chest radiograph is read by Dr. Stoen as: 1. Incidental findings as described above. Nothing acute is appreciated. 11/19/18 15:[address] Anderson at 15:05. He recommended that the patient be treated with doxycycline 100 mg po twice a day for 10 days, in case the patient is suffering from an inflammatory reaction to the IUD. He recommended that the patient take [id number] ibuprofen 600 mg every X to 8 hours, as needed for discomfort, then have her follow-up with Dr. Lofton. 11/19/18 15:26 Test results discussed with the patient. The patient's CBC is normal - she is not significantly anemic, and, as above, her chest x-ray is normal. The patient will be started on doxycycline today, and a prescription for a 10 day course will be sent to the [facility]. She states that she has been told in the past that she should not take ibuprofen (presumably because of the risk of a gastric bypass anastomosis bleed), therefore I am recommending that she take over-the- counter Tylenol as needed for discomfort. The patient will also be given a note to allow her to return to work. She will be referred to Dr. Lofton. Departure - Departure Time of Disposition: 15:29 Disposition: Home, Self-Care 01 Condition: Good Clinical Impression: Menstrual cramps, Vaginal bleeding, Musculoskeletal chest pain - Discharge Information *PRESCRIPTION DRUG MONITORING PROGRAM REVIEWED*: Not Applicable *COPY OF PRESCRIPTION DRUG MONITORING REPORT IN PATIENT RUDOLPH: Not Applicable Prescriptions: Doxycycline [Vibramycin] 1 cap PO Q12H #19 cap Instructions: Dysmenorrhea, [id number] Referrals: Case Estrella MD [Primary Care Provider] - Hans Lofton MD [Physician] - Forms: ED Department Discharge, ED Return to Work/School Form Additional Instructions: You were seen in the emergency room for excessive vaginal bleeding and pelvic cramps, along with left-sided chest pain. Workup in the ER included a CBC and a chest x-ray, both of which were normal. You are not significantly anemic. You do not have pneumonia or a collapsed lung. Your case was discussed with the [employer] Dr. Anderson. Based on your history, physical examination, and ER tests, your vaginal bleeding may be due to an inflammatory reaction to your IUD. Dr. Anderson recommended that you start taking the antibiotic doxycycline. Your chest pain appears to be musculoskeletal in etiology. You have been started on doxycycline. A prescription for doxycycline has been sent to the [facility], located in the [email or web address] grocery store. Take one tablet every 12 hours, starting tomorrow morning, 11/20/2018, as prescribed. Finish the entire prescription unless told otherwise by a doctor. Take [id number] Tylenol as needed for discomfort. Follow-up with the [employer] Dr. Hnas Lofton, within 10 days. If any other problems, please do not hesitate to return to the ER.
[2018-11-19] MEDS ORDERED: Doxycycline 100 MG Cap PO ONE (15:26)
== END 2018-11-19 15:48 | disposition home or self-care (01) ==
LOC: JD.ED 11:31
DX: N94.6 Dysmenorrhea, unspecified (principal); N93.9 Abnormal uterine and vaginal bleeding, unspecified; R07.89 Other chest pain; F41.9 Anxiety disorder, unspecified; Z87.891 Personal history of nicotine dependence; Z88.8 Allergy status to other drugs, medicaments and biological substances; Z88.1 Allergy status to other antibiotic agents; Z79.899 Other long term (current) drug therapy; Z97.5 Presence of (intrauterine) contraceptive device
CPT/HCPCS: 36415; 71046; 85007; 85027; 99284; A9270; 99283

== ENCOUNTER 2020-05-10 14:01 | Emergency (ER) | payer BC ==
[2020-05-10 14:15] VITALS: BP 138/73; PULSE 85
[2020-05-10] MEDS ORDERED: HYDROmorphone 1 MG/ML Syringe IVPUSH ONE (14:34)
[2020-05-10] MEDS ORDERED: Ketorolac 30 MG/ML SDV IVPUSH STA (14:35)
[2020-05-10] MEDS ORDERED: Tamsulosin 0.4 MG Cap.ER PO ONE (14:35)
[2020-05-10] MEDS ORDERED: Ondansetron 4 MG/2 ML SDV IVPUSH ONE (14:35)
--- NOTE | 2020-05-10 14:40 | EDM.PDOC ---
ED HPI GENERAL MEDICAL PROBLEM - General Chief Complaint: Flank Pain Stated Complaint: KIDNEY PAIN Time Seen by Provider: 05/10/20 14:16 Source of Information: Reports: Patient History Limitations: Reports: No Limitations - History of Present Illness INITIAL COMMENTS - FREE TEXT/NARRATIVE: Ms. Martin is a pleasant 44-year-old woman with a past medical history significant for kidney stones, who is sent over from the walk-in clinic with a complaint of right flank pain. The patient states that she has had dysuria since this past 05/06/2020, and gross hematuria since 05/08/2020. She then developed severe right flank pain which radiated to her right upper quadrant around 01:00 this morning. She is unable to describe the character of the pain. She states that the pain has progressively gotten worse, and that she has not identified any modifiers. She states that she took 1 Percocet 5/325 tablet at 03:00, which did not help. She states that her current pain is different than prior kidney stones, because the pain is more severe. Here in the ED, the patient is found to be hemodynamically stable, afebrile, saturating 100% on room air. Other than her urinary symptoms and flank pain, the patient denies recent fever, chills, sore throat, ear pain, nasal or sinus congestion, cough, dyspnea, chest pain, palpitations, nausea, vomiting, constipation, diarrhea, abdominal pain, recent weight gain or weight loss, recent bloody bowel movements or black bowel movements, recent joint aches, headaches, or rashes. The patient states that she last ate around 09:00 this morning. The patient's PCP is Dr. Case Estrella. Her Flight Security Specialist is Dr. Manju Medina. - Related Data Allergies Allergy/AdvReac Type Severity Reaction Status Date / Time Penicillins Allergy Severe Hives Verified 05/10/20 14:15 amoxicillin [Amoxicillin] Allergy Hives Verified 04/11/19 07:34 chocolate flavor Allergy Anaphylactic Verified 04/11/19 07:34 Shock erythromycin base Allergy Hives Verified 04/11/19 07:34 [Erythromycin Base] venom-honey bee Allergy Anaphylactic Verified 04/11/19 07:34 [bee venom (honey bee)] Shock prochlorperazine AdvReac Fatigue Verified 04/11/19 07:34 Home Meds: Home Meds Multivitamin [Multivitamins] 1 cap PO DAILY 10/08/14 [History] Fluticasone Propionate [Flonase Allergy Relief] 2 spray INH DAILY 04/01/18 [History] traMADol HCl [Tramadol HCl] 50 mg PO Q6H PRN 04/01/18 [History] Olmesartan/Hydrochlorothiazide [Olmesartan-Hctz 20-12.5 mg Tab] 1 each PO DAILY 04/11/19 [History] Orphenadrine [Norflex] 1 tab PO Q12H PRN #14 tab.er 05/10/20 [Rx] Past Medical History HEENT History: Reports: Allergic Rhinitis, Impaired Vision Genitourinary History: Reports: Acute Renal Failure (following gastic bypass surgery, reselved), Renal Calculus 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: Dysfunctional Uterine Bleeding Psychiatric History: Reports: Anxiety Endocrine/Metabolic History: Reports: Obesity/BMI 30+ - Infectious Disease History Infectious Disease History: Reports: MRSA - Past Surgical History GI Surgical History: Reports: Appendectomy (1980), Bariatric Procedure (gastric bypass Sep 2016), Cholecystectomy (2009) Female Surgical History: Reports: Section (x 4), Tubal Ligation (2003), Ureteral Stent Musculoskeletal Surgical History: Reports: Shoulder Surgery (right, arthroscopic) Dermatological Surgical History: Reports: Other (See Below) (Bilateral upper extremity brachioplasty 04/29/2020) Social & Family History - Family History Family Medical History: Noncontributory - Tobacco Use Smoking Status *Q: Former Smoker Years of Tobacco use: 15 Packs/Tins Daily: 0.4 Month/Year Tobacco Last Used: Quit 2013 - Caffeine Use Caffeine Use: Reports: None - Alcohol Use Alcohol Use History: No - Recreational Drug Use Recreational Drug Use: No - Living Situation & Occupation Living situation: Reports: Single, with Family (2 kids) 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 ED EXAM, GENERAL - Physical Exam Exam: See Below Exam Limited By: No Limitations General Appearance: Alert, WD/WN, Mild Distress (appears uncomfortable) Eye Exam: Bilateral Eye: EOMI, Normal Inspection Ears: Normal External Exam, Hearing Grossly Normal Nose: Normal Inspection Throat/Mouth: Normal Inspection, Normal Lips, Normal Voice, No Airway Compromise Head: Atraumatic, Normocephalic Neck: Normal Inspection, Full Range of Motion Respiratory/Chest: No Respiratory Distress, Lungs Clear, Normal Breath Sounds, No Accessory Muscle Use Cardiovascular: Normal Peripheral Pulses, Regular Rate, Rhythm, No Edema, No Gallop, No JVD, No Murmur, No Rub Peripheral Pulses: 3+: Radial (L), Radial (R) GI/Abdominal: Normal Bowel Sounds, Soft, No Organomegaly, No Distention, No Abnormal Bruit, No Mass, Tender (Reproducible, to the right upper quadrant only. Essentially nontender elsewhere.) (Female) Exam: Deferred Rectal (Female) Exam: Deferred Back Exam: Normal Inspection, Full Range of Motion, CVA Tenderness (R) (Reproducible, but also tender to direct palpation of the right flank without percussion). No: CVA Tenderness (L) Extremities: Normal Inspection, Normal Range of Motion, No Pedal Edema, Normal Capillary Refill, Other (Bilateral upper arms wrapped with a pressure dressing/gauze) Neurological: Alert, Oriented, Normal Cognition, No Motor/Sensory Deficits Psychiatric: Normal Affect Skin Exam: Warm, Dry, Intact, Normal Color, No Rash Course - Vital Signs Last Recorded V/S: Last Vital Signs Temp 36.2 C 05/10/20 14:10 Pulse 85 05/10/20 14:10 Resp 20 05/10/20 14:10 BP 138/73 05/10/20 14:10 Pulse Ox 100 05/10/20 14:10 - Orders/Labs/Meds Labs: Laboratory Tests 05/10/20 05/10/20 05/10/20 Range/Units 14:40 14:40 14:49 WBC 6.95 (3.98-10.04) K/mm3 RBC 4.04 (3.98-5.22) M/mm3 Hgb 12.8 (11.2-15.7) gm/dl Hct 38.6 (34.1-44.9) % MCV 95.5 H D (79.4-94.8) fl MCH 31.7 (25.6-32.2) pg MCHC 33.2 (32.2-35.5) g/dl RDW Std Deviation 44.0 (36.4-46.3) fL Plt Count 538 H (182-369) K/mm3 MPV 7.8 L (9.4-12.3) fl Neutrophils % (Manual) 69 H (40-60) % Band Neutrophils % 0 (0-10) % Lymphocytes % (Manual) 25 (20-40) % Atypical Lymphs % 0 % Monocytes % (Manual) 2 (2-10) % Eosinophils % (Manual) 4 (0.7-5.8) % Basophils % (Manual) 0 L (0.1-1.2) Toxic Granulation Platelet Estimate Increased Plt Morphology Comment See note RBC Morph Comment Normal Sodium 139 (136-145) mEq/L Potassium 3.0 L (3.5-5.1) mEq/L Chloride 106 (98-107) mEq/L Carbon Dioxide 23 (21-32) mEq/L Anion Gap 13.0 (5-15) BUN 25 H (7-18) mg/dL Creatinine 0.9 (0.55-1.02) mg/dL Est Cr Clr Drug Dosing 75.95 mL/min Estimated GFR (MDRD) > 60 (>60) mL/min BUN/Creatinine Ratio 27.8 H (14-18) Glucose 77 (74-106) mg/dL Calcium 9.2 (8.5-10.1) mg/dL Magnesium 2.0 (1.8-2.4) mg/dl Total Bilirubin 0.2 (0.2-1.0) mg/dL AST 25 (15-37) U/L ALT 43 (14-59) U/L Alkaline Phosphatase 75 (46-116) U/L Total Protein 7.7 (6.4-8.2) g/dl Albumin 3.7 (3.4-5.0) g/dl Globulin 4.0 gm/dL Albumin/Globulin Ratio 0.9 L (1-2) Urine Color Yellow (Yellow) Urine Appearance Clear (Clear) Urine pH 6.5 (5.0-8.0) Ur Specific [place] 1.025 (1.005-1.030) Urine Protein 1+ H (Negative) Urine Glucose (UA) Negative (Negative) Urine Ketones Negative (Negative) Urine Occult Blood Trace-lysed H (Negative) Urine Nitrite Negative (Negative) Urine Bilirubin Negative (Negative) Urine Urobilinogen 0.2 (0.2-1.0) Ur Leukocyte Esterase Trace H (Negative) U Hyaline Cast (Auto) 10-20 H (0-5) /lpf Urine RBC 0-5 (0-5) /hpf Urine WBC 5-10 H (0-5) /hpf Ur Squamous Epith Cells 5-10 H (0-5) /hpf Calcium Oxalate Crystal Moderate H (NONE) Urine Bacteria Few (FEW) /hpf Urine Mucus Few (FEW) /hpf Urine HCG, Qual (NEGATIVE) 05/10/20 Range/Units 14:49 WBC (3.98-10.04) K/mm3 RBC (3.98-5.22) M/mm3 Hgb (11.2-15.7) gm/dl Hct (34.1-44.9) % MCV (79.4-94.8) fl MCH (25.6-32.2) pg MCHC (32.2-35.5) g/dl RDW Std Deviation (36.4-46.3) fL Plt Count (182-369) K/mm3 MPV (9.4-12.3) fl Neutrophils % (Manual) (40-60) % Band Neutrophils % (0-10) % Lymphocytes % (Manual) (20-40) % Atypical Lymphs % % Monocytes % (Manual) (2-10) % Eosinophils % (Manual) (0.7-5.8) % Basophils % (Manual) (0.1-1.2) Toxic Granulation Platelet Estimate Plt Morphology Comment RBC Morph Comment Sodium (136-145) mEq/L Potassium (3.5-5.1) mEq/L Chloride (98-107) mEq/L Carbon Dioxide (21-32) mEq/L Anion Gap (5-15) BUN (7-18) mg/dL Creatinine (0.55-1.02) mg/dL Est Cr Clr Drug Dosing mL/min Estimated GFR (MDRD) (>60) mL/min BUN/Creatinine Ratio (14-18) Glucose (74-106) mg/dL Calcium (8.5-10.1) mg/dL Magnesium (1.8-2.4) mg/dl Total Bilirubin (0.2-1.0) mg/dL AST (15-37) U/L ALT (14-59) U/L Alkaline Phosphatase (46-116) U/L Total Protein (6.4-8.2) g/dl Albumin (3.4-5.0) g/dl Globulin gm/dL Albumin/Globulin Ratio (1-2) Urine Color (Yellow) Urine Appearance (Clear) Urine pH (5.0-8.0) Ur Specific [place] (1.005-1.030) Urine Protein (Negative) Urine Glucose (UA) (Negative) Urine Ketones (Negative) Urine Occult Blood (Negative) Urine Nitrite (Negative) Urine Bilirubin (Negative) Urine Urobilinogen (0.2-1.0) Ur Leukocyte Esterase (Negative) U Hyaline Cast (Auto) (0-5) /lpf Urine RBC (0-5) /hpf Urine WBC (0-5) /hpf Ur Squamous Epith Cells (0-5) /hpf Calcium Oxalate Crystal (NONE) Urine Bacteria (FEW) /hpf Urine Mucus (FEW) /hpf Urine HCG, Qual Negative (NEGATIVE) Meds: Medications Discontinued Medications Generic Name Dose Route Start Last Admin Trade Name Freq PRN Reason Stop Dose Admin Diatrizoate Meglum/Diatrizoate Sod 90 ml 05/10/20 16:27 05/10/20 16:56 Gastrografin 37% PO 05/10/20 16:28 90 ml ONETIME ONE Administration Hydromorphone HCl 1 mg 05/10/20 14:34 05/10/20 14:53 Dilaudid IVPUSH 05/10/20 14:35 1 mg ONETIME ONE Administration Sodium Chloride 1,000 mls @ 150 mls/hr 05/10/20 14:45 05/10/20 14:51 Normal Saline IV 150 mls/hr ASDIRECTED CRISPIN Administration Iopamidol 100 ml 05/10/20 16:27 05/10/20 16:56 Isovue-300 (61%) IVPUSH 05/10/20 16:28 100 ml ONETIME ONE Administration Iopamidol 25 ml 05/10/20 16:27 05/10/20 16:56 Isovue-300 (61%) IVPUSH 05/10/20 16:28 25 ml ONETIME ONE Administration Ketorolac Tromethamine 30 mg 05/10/20 14:35 05/10/20 14:52 Toradol IVPUSH 05/10/20 14:36 30 mg ONETIME STA Administration Ondansetron HCl 4 mg 05/10/20 14:35 05/10/20 14:52 Zofran IVPUSH 05/10/20 14:36 4 mg ONETIME ONE Administration Orphenadrine Citrate 100 mg 05/10/20 17:46 05/10/20 18:05 Norflex PO 05/10/20 17:47 100 mg ONETIME STA Administration Potassium Chloride 40 meq 05/10/20 16:38 05/10/20 17:13 Klor-Con M20 PO 05/10/20 16:39 40 meq ONETIME ONE Administration Sodium Chloride 10 ml 05/10/20 16:27 05/10/20 16:56 Saline Flush FLUSH 05/10/20 16:28 10 ml ONETIME ONE Administration Tamsulosin HCl 0.4 mg 05/10/20 14:35 05/10/20 14:52 Flomax PO 05/10/20 14:36 0.4 mg ONETIME ONE Administration - Re-Assessments/Exams Free Text/Narrative Re-Assessment/Exam: 05/10/20 14:36 As above, the patient has had dysuria since 05/06/2020, gross hematuria since 05/08/2020, then developed right flank pain and right upper quadrant pain around 01:00 this morning. She states that her current pain is different than when she had a kidney stone in the past, and on examination, while she has right CVA tenderness, she also has tenderness to palpation of the right flank area without percussion. Additionally, she has tenderness to the right upper quadrant, therefore the etiology of her symptoms is not immediately clear. Her pain could be due to a ureterolith, versus pyelonephritis, versus an intra-abdominal process. I have therefore ordered a work-up that includes blood work, a urinalysis, urine test, and a CT scan of her abdomen and pelvis with oral and IV contrast. In the meantime, the patient will be treated with IV Dilaudid, oral Flomax, IV fluid, IV Toradol, and IV Zofran. 05/10/20 16:38 The patient's CBC is remarkable for platelets elevated at 530,000, and is otherwise unremarkable. Her CMP is remarkable for a potassium depressed at 3.0, and a BUN mildly elevated at 25 with a Cr normal at 0.9. The remainder of her CMP is unremarkable. Her magnesium level is within normal limits at 2.0. Her urinalysis is remarkable for trace occult blood with 0-5 RBCs, trace leukocyte esterase with 5-10 WBCs, nitrate negative with few bacteria, and 5-[address] of the abdomen and pelvis results are still pending. Based on the above, I have ordered 40 mEq of oral KCl. 05/10/20 17:21 CT of the abdomen and pelvis with oral and IV contrast is read by Dr. Stone as: 1. Lack of contrast on delayed images within the bladder raising the possibility of dehydration. 2. Nothing acute is appreciated on CT study of the abdomen and pelvis. 3. Other findings which are nonacute and noted above. 05/10/20 17:46 Test results discussed with the patient. As above, today's work-up, with the exception of modest hypokalemia and some suggestions of intravascular repletion, is unremarkable, and does not explain the cause of her pain. I suggested that it may be due to a muscle spasm, although I also explained that there are no tests to diagnose a muscle spasm. I recommended that we start her on Norflex, with a prescription for the same, with to which the patient agreed. I will have her take that with [id number] ibuprofen. If she is not feeling significantly better after 3 days, I would like her to follow-up with her PCP for further evaluation. Departure - Departure Time of Disposition: 17:48 Disposition: Home, Self-Care 01 Condition: Good Clinical Impression: Right flank pain, Hypokalemia - Discharge Information *PRESCRIPTION DRUG MONITORING PROGRAM REVIEWED*: Not Applicable *COPY OF PRESCRIPTION DRUG MONITORING REPORT IN PATIENT RUDOLPH: Not Applicable Prescriptions: Orphenadrine [Norflex] 1 tab PO Q12H PRN #14 tab.er PRN Reason: Muscle Spasm Instructions: Hypokalemia, Flank Pain, Adult, [id number] Referrals: Case Estrella MD [Primary Care Provider] - Manju Medina MD [Physician] - Forms: ED Department Discharge Additional Instructions: You were seen in the emergency room after developing painful urination on Monday, bloody urine on Monday, and severe right flank pain early this morning. Work-up in the ER included blood work, a urinalysis, a urine test, and a CT scan of your abdomen and pelvis with oral and IV contrast. Your blood work found your potassium to be modestly depressed at 3.0. You were given oral potassium replacement. Your blood work also indicated that you might be a little dry. You were given IV fluid during your ER visit. The remainder of your work-up, including your CT scan, was unremarkable, and does not explain the cause of your symptoms. You do not have a kidney stone. You do not have a urinary tract infection. You are not . Based on your history, physical exam, and ER tests, the cause of your pain remains unknown, but could be due to a muscle spasm. You have been started on the muscle relaxant Norflex, and a prescription for Norflex has been sent to the [facility] located in the [employer] store. Take 1 tablet of Norflex every 12 hours, starting tomorrow morning, 05/11/2020, as prescribed. Norflex works well with ibuprofen. We recommend that you take [id number] ibuprofen, 3 tablets (600 mg) up to every 8 hours, with food, as needed for discomfort. If you are not feeling significantly better by 05/13/2020, we recommend that you follow-up with your PCP, Dr. Case Estrella, for further evaluation. If any other problems, please do not hesitate to return to the ER. Sepsis Event Note (ED) - Evaluation Sepsis Screening Result: No Definite Risk - Focused Exam Vital Signs: Vital Signs Temp Pulse Resp BP Pulse Ox 05/10/20 14:10 36.2 C 85 20 138/73 100
[2020-05-10] MEDS ORDERED: Sodium Chloride 0.9% 1,000 ML IV SCH (14:45)
[2020-05-10] MEDS ORDERED: Sodium Chloride 0.9% 10 ML Syringe FLUSH ONE (16:27)
[2020-05-10] MEDS ORDERED: Diatrizoate Meglumine/Diatrizoate Sodium 37% 120 ML Bottle PO ONE (16:27)
[2020-05-10] MEDS ORDERED: Iopamidol 612 MG/ML 50 ML SDV IVPUSH ONE (16:27)
[2020-05-10] MEDS ORDERED: Iopamidol 612 MG/ML 100 ML Bottle IVPUSH ONE (16:27)
[2020-05-10] MEDS ORDERED: Potassium Chloride 20 MEQ Tab.ER PO ONE (16:38)
--- NOTE | 2020-05-10 17:18 | CT ---
CT abdomen and pelvis Technique: Multiple axial sections were obtained from above the dome of the diaphragm inferiorly through the pubic symphysis. Intravenous contrast was utilized. Oral contrast was also utilized. Delayed images were obtained through the bladder. Reconstructed coronal and sagittal images were obtained. Comparison: Prior noncontrast CT abdomen and pelvis study of 10/30/18. Findings: Visualized lung bases show nothing acute. Liver contains no focal parenchymal abnormality. Spleen appears within normal limits. Adrenal glands show no nodule. Kidneys show symmetric contrast enhancement without hydronephrosis or discrete mass. Calcifications are believed to be present within the lower left kidney compatible with nonobstructing calculi. Pancreas shows no discrete abnormality. Surgical clips are seen from previous cholecystectomy. Aorta shows no aneurysm. No retroperitoneal adenopathy or mesenteric abnormalities are seen. No pelvic mass or adenopathy is seen. IUD is present within the region of the endometrial cavity. Appendix is not visualized with certainty. No free fluid or inflammatory change is appreciated. Delayed images shows no contrast within the bladder raising the possibility of dehydration. Bone window settings were reviewed which shows scattered degenerative change. No acute osseous finding is appreciated. Small fat-containing anterior abdominal wall hernia is seen on the sagittal views slightly above the umbilicus. Impression: 1. Lack of contrast on delayed images within the bladder raising the possibility of dehydration. 2. Nothing acute is appreciated on CT study of the abdomen and pelvis. 3. Other findings which are nonacute as noted above. Diagnostic code #2 Study was dictated in MDT
[2020-05-10] MEDS ORDERED: Orphenadrine 100 MG Tab.ER PO STA (17:46)
== END 2020-05-10 18:15 | disposition home or self-care (01) ==
LOC: JD.ED 14:01
DX: E87.6 Hypokalemia (principal); R10.11 Right upper quadrant pain; E66.9 Obesity, unspecified; Z68.32 Body mass index [BMI] 32.0-32.9, adult; Z90.49 Acquired absence of other specified parts of digestive tract; Z98.890 Other specified postprocedural states; Z98.84 Bariatric surgery status; Z88.0 Allergy status to penicillin; Z88.1 Allergy status to other antibiotic agents; Z91.018 Allergy to other foods; Z91.030 Bee allergy status; Z88.8 Allergy status to other drugs, medicaments and biological substances; Z87.891 Personal history of nicotine dependence
CPT/HCPCS: 36415; 74177; 80053; 81001; 81025; 83735; 85007; 85027; 96374; 96375; 99284; A9270; J1170; J1885; J2405; J7030; Q9963; Q9967

== ENCOUNTER 2021-07-04 14:53 | Emergency (ER) | payer BC ==
[2021-07-04 15:46] VITALS: BP 133/80; PULSE 110
--- NOTE | 2021-07-04 16:31 | CR ---
Chest: Portable view of the chest was obtained. Comparison: Prior chest x-ray 04/11/19. Increased density is seen within the left lung base. Mild linear densities are noted within the right lung base. Stable nodule is noted within the right lower lung. Upper lungs are clear. Heart size and mediastinum are normal. Bony structures show nothing acute. Impression: 1. Increased density within the left lung base. Please correlate if patient has any symptoms to suggest early pneumonia. Findings otherwise could be due to atelectasis. 2. Slight atelectasis within the right lung base is seen. 3. No other acute abnormality is seen. Diagnostic code #3
[2021-07-04] MEDS ORDERED: Sodium Chloride 0.9% 10 ML Syringe FLUSH PRN (16:45)
--- NOTE | 2021-07-04 17:24 | EDM.PDOC ---
ED HPI GENERAL MEDICAL PROBLEM - General Chief Complaint: Flank Pain Stated Complaint: HEADACHE,ABD PAIN COUGHING BLOOD Time Seen by Provider: 07/04/21 15:57 Source of Information: Reports: Patient History Limitations: Reports: No Limitations - History of Present Illness INITIAL COMMENTS - FREE TEXT/NARRATIVE: Presents with multiple symptoms including shortness of breath chest pain right severe flank pain. She felt like low-grade fevers and chills and shaking chills in particular. Not diaphoretic but not sleeping well the last couple days. Not vaccinated for Covid has had a negative Covid test last week however. Has right flank pain and does radiate some to the right lower quadrant patient has however had her appendix out and a cholecystectomy in the past. No vaginal discharge or burning or pain with urination. Although she feels dehydrated she not been eating or drinking very well. She has been coughing productive cough occasionally blood-streaked phlegm no history of underlying asthma or pneumonia no history of any smoking history. Family history both parents with high blood pressure of heart disease. Has had some mild headaches and lightheadedness no fainting spell. Nauseated and had some vomiting and loose stools. No bloody stools. Back Pain Score (Numeric/FACES): 10 - Related Data Allergies Allergy/AdvReac Type Severity Reaction Status Date / Time Penicillins Allergy Severe Hives Verified 07/04/21 15:25 amoxicillin [Amoxicillin] Allergy Hives Verified 07/04/21 15:25 chocolate flavor Allergy Anaphylactic Verified 07/04/21 15:25 Shock erythromycin base Allergy Hives Verified 07/04/21 15:25 [Erythromycin Base] venom-honey bee Allergy Anaphylactic Verified 07/04/21 15:25 [bee venom (honey bee)] Shock prochlorperazine AdvReac Fatigue Verified 07/04/21 15:25 Home Meds: Home Meds Fluticasone Propionate [Flonase Allergy Relief] 2 spray INH DAILY 04/01/18 [History] Benzonatate [Tessalon Perle] 100 mg PO TID PRN #30 capsule 07/04/21 [Rx] Naproxen [Naprosyn] 500 mg PO Q12HR #30 tab 07/04/21 [Rx] Olmesartan [Benicar] 20 mg PO DAILY 07/04/21 [History] Ondansetron [Zofran ODT] 4 mg PO Q6H PRN #12 tab.dis 07/04/21 [Rx] levoFLOXacin [Levaquin] 750 mg PO Q48H #5 tab 07/04/21 [Rx] Past Medical History HEENT History: Reports: Allergic Rhinitis, Impaired Vision Cardiovascular History: Reports: Hypertension, Other (See Below) Other Cardiovascular History: low potassium Respiratory History: Reports: Other (See Below) Other Respiratory History: seasonal allergies Gastrointestinal History: Reports: Cholelithiasis Genitourinary History: Reports: Renal Calculus Other Genitourinary History: KIDNEY FAILURE [employer] P[employer] INST[employer]ER History: Reports: Dysfunctional Uterine Bleeding Musculoskeletal History: Reports: Other (See Below) Other Musculoskeletal History: left wrist surgery, bilateral ankle Neurological History: Reports: Migraines Psychiatric History: Reports: Anxiety Endocrine/Metabolic History: Reports: Obesity/BMI 30+ Hematologic History: Reports: None Immunologic History: Reports: None Oncologic (Cancer) History: Reports: None - Infectious Disease History Infectious Disease History: Reports: Other (See Below) Other Infectious Disease History: cleared from MRSA per pt - Past Surgical History Head Surgeries/Procedures: Reports: None HEENT Surgical History: Reports: Oral Surgery GI Surgical History: Reports: Appendectomy, Bariatric Procedure, Cholecystectomy Other GI Surgeries/Procedures: GASTRIC BYPASS Female Surgical History: Reports: Section, Tubal Ligation, Ureteral Stent Other Female Surgeries/Procedures: IUD for menstral bleeding, has been in place for 3 years Musculoskeletal Surgical History: Reports: Shoulder Surgery Other Musculoskeletal Surgeries/Procedures:: right. 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 Denies: Vision Change Respiratory: Reports: Shortness of Breath, Cough Cardiovascular: Reports: Chest Pain, Dyspnea on Exertion Endocrine: Reports: Fatigue GI/Abdominal: Reports: Abdominal Pain, Diarrhea, Nausea, Vomiting : Reports: Flank Pain. Denies: Dysuria, Hematuria Musculoskeletal: Reports: Back Pain Neurological: Reports: No Symptoms, Headache. Denies: Confusion Psychiatric: Reports: No Symptoms ED EXAM, GI/ABD - Physical Exam Exam: See Below General Appearance: Alert, WD/WN, Moderate Distress Throat/Mouth: Normal Inspection, Normal Oropharynx, Normal Voice Head: Atraumatic, Normocephalic Neck: Normal Inspection, Supple, Non-Tender Respiratory/Chest: No Accessory Muscle Use, Decreased Breath Sounds, Rhonchi Cardiovascular: Normal Peripheral Pulses, Regular Rate, Rhythm, No Edema, No JVD GI/Abdominal Exam: Normal Bowel Sounds, Soft, No Distention, Tender Back Exam: CVA Tenderness (R) Extremities: No Pedal Edema Neurological: Alert, Oriented Psychiatric: Normal Affect Skin Exam: Warm, Dry #1 Interpretation EKG Date: 07/04/21 EKG Interpretation Comments: I reviewed the EKG from July 04, 2021 at 5:11 PM it shows sinus rhythm rate of 99 CO 140 QRS is 100 QT corrected 448 laying nonspecific repolarization changes but no acute ST or ischemic changes noted. Course - Vital Signs Text/Narrative:: Patient with multiple symptoms rule out Covid, PE, seems less likely acute coronary syndrome, pneumonia, flank pain could be urinary tract infection or pyelonephritis may be renal colic, seems less likely bowel obstruction. Last Recorded V/S: Last Vital Signs Temp 98.0 F 07/04/21 15:44 Pulse 110 H 07/04/21 15:44 Resp 20 07/04/21 15:44 BP 133/80 07/04/21 15:44 Pulse Ox 97 07/04/21 15:44 - Orders/Labs/Meds Orders: Active Orders 24 hr Category Date Time Status Peripheral IV Care [RC] . DIRECTED Care 07/04/21 16:47 Active CULTURE URINE [MREF] Stat Lab 07/04/21 15:40 Received GROUP B STREP BY PCR [MOLEC] Stat Lab 07/04/21 19:09 Ordered PROCALCITONIN [REF] Stat Lab 07/04/21 17:16 Received Levofloxacin/Dextrose 5%-Water [Levaquin in D5W 750 MG/ Med 07/04/21 19:22 Active 150 ML] 750 mg Premix Bag 1 bag IV ONETIME Sodium Chloride 0.9% [Normal Saline] 1,000 ml Med 07/04/21 19:08 Active IV ONETIME Sodium Chloride 0.9% [Saline Flush] Med 07/04/21 16:45 Active 10 ml FLUSH ASDIRECTED PRN Peripheral IV Insertion Adult [OM.PC] Stat Oth 07/04/21 16:44 Ordered EKG 12 Lead [EK] Stat Ther 07/04/21 16:44 Ordered Medication Orders Sodium Chloride (Normal Saline) 1,000 mls @ 999 mls/hr IV ONETIME ONE Stop: 07/04/21 20:08 Last Admin: 07/04/21 19:30 Dose: 999 mls/hr Documented by: RIO Levofloxacin/Dextrose 750 mg/ (Premix) 150 mls @ 100 mls/hr IV ONETIME ONE Stop: 07/04/21 20:51 Last Admin: 07/04/21 19:31 Dose: 100 mls/hr Documented by: RIO Sodium Chloride (Sodium Chloride 0.9% 10 Ml Syringe) 10 ml FLUSH ASDIRECTED PRN PRN Reason: Keep Vein Open Last Admin: 07/04/21 19:31 Dose: 10 ml Documented by: RIO Labs: Laboratory Tests 07/04/21 07/04/21 07/04/21 Range/Units 15:40 15:40 17:16 WBC 13.55 H (3.98-10.04) K/mm3 RBC 3.45 L (3.98-5.22) M/mm3 Hgb 9.6 L D (11.2-15.7) gm/dl Hct 28.3 L (34.1-44.9) % MCV 82.0 D (79.4-94.8) fl MCH 27.8 (25.6-32.2) pg MCHC 33.9 (32.2-35.5) g/dl RDW Std Deviation 45.0 (36.4-46.3) fL Plt Count 364 D (182-369) K/mm3 MPV 9.6 (9.4-12.3) fl Neut % (Auto) 75.6 H (34.0-71.1) % Lymph % (Auto) 12.3 L (19.3-51.7) % [place] % (Auto) 10.7 (4.7-12.5) % Eos % (Auto) 0.2 L (0.7-5.8) Baso % (Auto) 0.1 (0.1-1.2) % Neut # (Auto) 10.23 H (1.56-6.13) K/mm3 Lymph # (Auto) 1.67 (1.18-3.74) K/mm3 [place] # (Auto) 1.45 H (0.24-0.36) K/mm3 Eos # (Auto) 0.03 L (0.04-0.36) K/mm3 Baso # (Auto) 0.02 (0.01-0.08) K/mm3 Manual Slide Review Abnormal smear Sodium (136-145) mEq/L Potassium (3.5-5.1) mEq/L Chloride (98-107) mEq/L Carbon Dioxide (21-32) mEq/L Anion Gap (5-15) BUN (7-18) mg/dL Creatinine (0.55-1.02) mg/dL Est Cr Clr Drug Dosing mL/min Estimated GFR (MDRD) (>60) mL/min BUN/Creatinine Ratio (14-18) Glucose (70-99) mg/dL Calcium (8.5-10.1) mg/dL Total Bilirubin (0.2-1.0) mg/dL AST (15-37) U/L ALT (14-59) U/L Alkaline Phosphatase (46-116) U/L C-Reactive Protein (<1.0) mg/dL Total Protein (6.4-8.2) g/dl Albumin (3.4-5.0) g/dl Globulin gm/dL Albumin/Globulin Ratio (1-2) Urine Color Yellow (Yellow) Urine Appearance Clear (Clear) Urine pH 6.0 (5.0-8.0) Ur Specific [place] 1.010 (1.005-1.030) Urine Protein Trace H (Negative) Urine Glucose (UA) Negative (Negative) Urine Ketones Negative (Negative) Urine Occult Blood 1+ H (Negative) Urine Nitrite Negative (Negative) Urine Bilirubin Negative (Negative) Urine Urobilinogen 0.2 (0.2-1.0) Ur Leukocyte Esterase 1+ H (Negative) Urine RBC 0-5 (0-5) /hpf Urine WBC 5-10 H (0-5) /hpf Ur Squamous Epith Cells 0-5 (0-5) /hpf Urine Bacteria Few (FEW) /hpf Urine Mucus Not seen (FEW) /hpf SARS-CoV-2 RNA (JENNIFER) Negative (NEGATIVE) 07/04/21 Range/Units 17:16 WBC (3.98-10.04) K/mm3 RBC (3.98-5.22) M/mm3 Hgb (11.2-15.7) gm/dl Hct (34.1-44.9) % MCV (79.4-94.8) fl MCH (25.6-32.2) pg MCHC (32.2-35.5) g/dl RDW Std Deviation (36.4-46.3) fL Plt Count (182-369) K/mm3 MPV (9.4-12.3) fl Neut % (Auto) (34.0-71.1) % Lymph % (Auto) (19.3-51.7) % [place] % (Auto) (4.7-12.5) % Eos % (Auto) (0.7-5.8) Baso % (Auto) (0.1-1.2) % Neut # (Auto) (1.56-6.13) K/mm3 Lymph # (Auto) (1.18-3.74) K/mm3 [place] # (Auto) (0.24-0.36) K/mm3 Eos # (Auto) (0.04-0.36) K/mm3 Baso # (Auto) (0.01-0.08) K/mm3 Manual Slide Review Sodium 134 L (136-145) mEq/L Potassium 2.6 L (3.5-5.1) mEq/L Chloride 99 (98-107) mEq/L Carbon Dioxide 23 (21-32) mEq/L Anion Gap 14.6 (5-15) BUN 90 H D (7-18) mg/dL Creatinine 3.7 H D (0.55-1.02) mg/dL Est Cr Clr Drug Dosing 18.28 mL/min Estimated GFR (MDRD) 16 (>60) mL/min BUN/Creatinine Ratio 24.3 H (14-18) Glucose 152 H (70-99) mg/dL Calcium 8.1 L (8.5-10.1) mg/dL Total Bilirubin 0.3 (0.2-1.0) mg/dL AST 14 L (15-37) U/L ALT 24 (14-59) U/L Alkaline Phosphatase 123 H (46-116) U/L C-Reactive Protein 27.4 H* (<1.0) mg/dL Total Protein 6.5 (6.4-8.2) g/dl Albumin 1.8 L (3.4-5.0) g/dl Globulin 4.7 gm/dL Albumin/Globulin Ratio 0.4 L (1-2) Urine Color (Yellow) Urine Appearance (Clear) Urine pH (5.0-8.0) Ur Specific [place] (1.005-1.030) Urine Protein (Negative) Urine Glucose (UA) (Negative) Urine Ketones (Negative) Urine Occult Blood (Negative) Urine Nitrite (Negative) Urine Bilirubin (Negative) Urine Urobilinogen (0.2-1.0) Ur Leukocyte Esterase (Negative) Urine RBC (0-5) /hpf Urine WBC (0-5) /hpf Ur Squamous Epith Cells (0-5) /hpf Urine Bacteria (FEW) /hpf Urine Mucus (FEW) /hpf SARS-CoV-2 RNA (JENNIFER) (NEGATIVE) Meds: Medications Generic Name Dose Route Start Last Admin Trade Name Freq PRN Reason Stop Dose Admin Sodium Chloride 1,000 mls @ 999 mls/hr 07/04/21 19:08 07/04/21 19:30 Normal Saline IV 07/04/21 20:08 999 mls/hr ONETIME ONE Administration Levofloxacin/Dextrose 750 mg/ 150 mls @ 100 mls/hr 07/04/21 19:22 07/04/21 19:31 Premix IV 07/04/21 20:51 100 mls/hr ONETIME ONE Administration Sodium Chloride 10 ml 07/04/21 16:45 07/04/21 19:31 Sodium Chloride 0.9% 10 Ml Syringe FLUSH 10 ml ASDIRECTED PRN Administration Keep Vein Open Discontinued Medications Generic Name Dose Route Start Last Admin Trade Name Freq PRN Reason Stop Dose Admin Ceftriaxone Sodium 1 gm/ 100 mls @ 200 mls/hr 07/04/21 19:08 Sodium Chloride IV 07/04/21 19:37 ONETIME ONE Ketorolac Tromethamine 15 mg 07/04/21 19:08 07/04/21 19:31 Ketorolac 15 Mg/Ml Sdv IVPUSH 07/04/21 19:09 15 mg ONETIME ONE Administration - Radiology Interpretation Free Text/Narrative:: Portable chest x-ray shows increased density in the left lung base mild linear densities noted in the right lung base stable nodule noted right lower lung consider whether this could be pneumonia otherwise atelectasis otherwise heart and mediastinal structures are normal. No acute abnormality otherwise noted. - Re-Assessments/Exams Free Text/Narrative Re-Assessment/Exam: 07/04/21 17:37 White blood cell count 13,500 hemoglobin 9.6 medical 28.3 platelet count is 364,075% neutrophils noted. Negative urinalysis spec gravity 1.010 trace protein 1+ occult blood 1+ leukocyte Estrace 5-10 white blood cells, few bacteria noted. Free Text/Narrative Re-Assessment/Exam: 07/04/21 19:22 Based on work-up and evaluation the chest x-ray demonstrates whether there is atelectasis versus early lower infiltrates she does have a lot of coughing and suspect this could be early pneumonia although not Covid she also has looks like some inflammation of her kidneys and she does demonstrate some leukocyte esterase, will culture the urine and with her white blood cell count rule out for pyelonephritis. There is no other acute intra-abdominal process noted. We will treat her with Levaquin 750 mg daily for 5-day course given an IV dose today however. She got Toradol, Zofran, will treat her with IV fluids. We will plan discharge home I have sent a strep test to rule out strep throat otherwise anticipate patient will be discharged home. Recommend off work for 2 nights. Departure - Departure Time of Disposition: 19:50 Disposition: Home, Self-Care 01 Condition: Good, Fair Clinical Impression: Dehydration, Pyelonephritis Pneumonia Qualifiers: Pneumonia type: due to unspecified organism Laterality: bilateral Lung location: lower lobe of lung Qualified Code(s): J18.9 - Pneumonia, unspecified organism - Discharge Information Prescriptions: levoFLOXacin [Levaquin] 750 mg PO Q48H #5 tab Naproxen [Naprosyn] 500 mg PO Q12HR #30 tab Benzonatate [Tessalon Perle] 100 mg PO TID PRN #30 capsule PRN Reason: Cough Ondansetron [Zofran ODT] 4 mg PO Q6H PRN #12 tab.dis PRN Reason: Nausea/Vomiting Instructions: Pyelonephritis, Adult, [id number], Dehydration, Adult, [id number], Community-Acquired Pneumonia, Adult Referrals: Case Estrella MD [Primary Care Provider] - Forms: ED Department Discharge Additional Instructions: Recommend follow-up with your primary care physician call the office tomorrow to let them know that he had to come to the the emergency room for chest x-ray CT scan labs and discovered what looks like community-acquired pneumonia and possible pyelonephritis or infection of your kidney. I have placed you on Levaquin 750 mg once daily for 7 days, Naprosyn 500 mg twice a day as needed for pain, Zofran 4 mg as needed for nausea and vomiting, Tessalon 100 mg 1 3 times a day as needed for coughing. Rest, drink plenty of fluids, recommend off work tonight and tomorrow night. Return to the emergency room with any increasing shortness of breath, chest wilmer n, coughing and unable keep down fluids, vomiting, weakness, increasing flank pain, unable to urinate, bloody urine or worsening Sepsis Event Note (ED) - Focused Exam Vital Signs: Vital Signs Temp Pulse Resp BP Pulse Ox 07/04/21 15:44 98.0 F 110 H 20 133/80 97 - My Orders Last 24 Hours: My Active Orders 07/04/21 15:40 CULTURE URINE [MREF] Stat 07/04/21 16:44 Peripheral IV Insertion Adult [OM.PC] Stat EKG 12 Lead [EK] Stat 07/04/21 16:45 Sodium Chloride 0.9% [Saline Flush] 10 ml FLUSH ASDIRECTED PRN 07/04/21 16:47 Peripheral IV Care [RC] . DIRECTED 07/04/21 17:16 PROCALCITONIN [REF] Stat 07/04/21 19:08 Sodium Chloride 0.9% [Normal Saline] 1,000 ml IV ONETIME 07/04/21 19:09 GROUP B STREP BY PCR [MOLEC] Stat 07/04/21 19:22 Levofloxacin/Dextrose 5%-Water [Levaquin in D5W 750 MG/150 ML] 750 mg Premix Bag 1 bag IV ONETIME - Assessment/Plan Last 24 Hours: My Active Orders 07/04/21 15:40 CULTURE URINE [MREF] Stat 07/04/21 16:44 Peripheral IV Insertion Adult [OM.PC] Stat EKG 12 Lead [EK] Stat 07/04/21 16:45 Sodium Chloride 0.9% [Saline Flush] 10 ml FLUSH ASDIRECTED PRN 07/04/21 16:47 Peripheral IV Care [RC] . DIRECTED 07/04/21 17:16 PROCALCITONIN [REF] Stat 07/04/21 19:08 Sodium Chloride 0.9% [Normal Saline] 1,000 ml IV ONETIME 07/04/21 19:09 GROUP B STREP BY PCR [MOLEC] Stat 07/04/21 19:22 Levofloxacin/Dextrose 5%-Water [Levaquin in D5W 750 MG/150 ML] 750 mg Premix Bag 1 bag IV ONETIME
--- NOTE | 2021-07-04 18:17 | CT ---
CT abdomen and pelvis Technique: Multiple axial sections were obtained from above the dome of the diaphragm inferiorly through the pubic symphysis. Intravenous and oral contrast were not utilized. Reconstructed coronal and sagittal images were also obtained. Comparison: Prior CT abdomen and pelvis study of 05/10/20. Findings: Calcified granuloma is seen within the right lung base. Scattered areas of atelectasis are also noted. Noncontrast appearance of the liver shows no focal abnormality. Surgical clips are seen from prior cholecystectomy. Spleen size is normal. Adrenal glands show no nodule. Both kidneys are enlarged when compared to prior exam. Two nonobstructing calculi are noted within the lower left kidney which are stable from prior exam. No ureteral dilatation or ureteral stone is seen. Pancreas shows no discrete abnormality. Surgical material is seen within the stomach and within the small bowel. Abdominal aorta shows no aneurysm. No retroperitoneal adenopathy is seen. No mesenteric abnormalities are seen. IUD is noted within the endometrial cavity. There is the appearance of a pessary causing increased density. No pelvic mass or adenopathy is seen. Appendix is not definitely visualized. No bowel dilatation is seen. Bone window settings were reviewed which show mild scattered degenerative change within the spine. Vacuum phenomena is noted within both sacroiliac joints. Impression: 1. Enlarged kidneys as compared to prior study. Findings may relate to prominent pyelonephritis if patient has infectious symptoms. Diabetic nephropathy is also within the differential. Please rule out any systemic diseases as an etiology. 2. Two nonobstructing calculi are seen within the inferior left kidney. 3. Other nonacute findings as noted above. Diagnostic code #3
[2021-07-04] MEDS ORDERED: Ketorolac 15 MG/ML SDV IVPUSH ONE (19:08)
[2021-07-04] MEDS ORDERED: cefTRIAXone 1 GM in Sodium Chloride 0.9% 100 ML IV ONE (19:08)
[2021-07-04] MEDS ORDERED: Sodium Chloride 0.9% 1,000 ML IV ONE (19:08)
[2021-07-04] MEDS ORDERED: Levofloxacin/Dextrose 5%-Water 750 MG in Premix Bag 1 BAG IV ONE (19:22)
== END 2021-07-04 21:30 | disposition home or self-care (01) ==
LOC: JD.ED 14:53
DX: J18.9 Pneumonia, unspecified organism (principal); E86.0 Dehydration; N12 Tubulo-interstitial nephritis, not specified as acute or chronic; I10 Essential (primary) hypertension; E66.9 Obesity, unspecified; Z71.3 Dietary counseling and surveillance; Z88.0 Allergy status to penicillin; Z91.030 Bee allergy status; Z79.899 Other long term (current) drug therapy; Z20.822 Contact with and (suspected) exposure to COVID-19
CPT/HCPCS: 36415; 71045; 74176; 80053; 81001; 84145; 85025; 86140; 87086; 87635; 87651; 93005; 96365; 96366; 96375; 99285; J1885; J1956; J7030; 87088; 87186; U0002

== ENCOUNTER 2024-03-12 08:39 | Emergency (ER) | payer SELFPAY ==
[2024-03-12] MEDS: Diazepam 2 MG Tab PO ONE (10:17)
[2024-03-12 19:55] VITALS: BP 118/80; PULSE 89
== END 2024-03-12 10:26 | disposition home or self-care (01) ==
LOC: JD.ED 08:39
DX: M79.662 Pain in left lower leg (principal); R25.2 Cramp and spasm; I10 Essential (primary) hypertension; Z88.0 Allergy status to penicillin; Z88.1 Allergy status to other antibiotic agents; Z79.899 Other long term (current) drug therapy; Z88.8 Allergy status to other drugs, medicaments and biological substances; Z91.030 Bee allergy status; Z90.49 Acquired absence of other specified parts of digestive tract
CPT/HCPCS: 99283; A9270

== ENCOUNTER 2024-06-22 18:45 | Inpatient (IN) | payer OTHER ==
[2024-06-22 19:50] LABS: BASOPHILS PERCENT AUTO 0.2 % (0.0-1.0); EOSINOPHILS PERCENT AUTO 0.3 % (0.0-6.0); HEMATOCRIT 38.2 % (37.0-47.0); HEMOGLOBIN 12.8 gm/dl (12.0-16.0); IMMATURE GRAN ABSOLUTE AUTO 0.01 K/mm3 (0.00-0.05); IMMATURE GRAN PERCENT AUTO 0.1 % (0.0-0.4); LYMPHOCYTES ABSOLUTE AUTO 2.1 K/mm3 (1.0-4.8); LYMPHOCYTES PERCENT AUTO 22.9 % (24.0-44.0); MEAN CORPUSCULAR HEMOGLOBIN 29.8 pg (28.0-32.0); MEAN CORPUSCULAR HGB CONC 33.5 g/dl (32.0-36.0); MEAN PLATELET VOLUME 8.3 fl (9.4-12.3); MONOCYTES ABSOLUTE AUTO 0.3 K/mm3 (0.0-0.8); MONOCYTES PERCENT AUTO 3.5 % (0.0-8.0); NEUTROPHILS ABSOLUTE AUTO 6.8 K/mm3 (1.8-7.7); PLATELET COUNT,PLT 423 K/mm3 (150-400); RED BLOOD CELL COUNT 4.29 M/mm3 (4.10-5.30)
[2024-06-22] MEDS: Sodium Chloride 0.9% 1,000 ML IV ONE ×3 (19:50→23:24)
[2024-06-22] MEDS: Sodium Chloride 0.9% 10 ML Syringe FLUSH PRN (19:50)
[2024-06-22 20:15] LABS: A/G RATIO 1.1 (1-2); ALBUMIN 3.7 g/dl (3.4-5.0); ANION GAP 16.3 (5-15); BILIRUBIN TOTAL 0.3 mg/dL (0.2-1.0); BUN/CREATININE RATIO 28.1 (14-18); CREATININE 2.1 mg/dL (0.55-1.02); EST CRCL DRUG DOSING (CG) 26.51 mL/min; MAGNESIUM 2.3 mg/dL (1.8-2.4); PROTEIN TOTAL,TP 7.2 g/dl (6.4-8.2)
[2024-06-22 20:22] LABS: CORONAVIRUS COVID-19 NAA NEGATIVE (NEGATIVE); INFLUENZA A NAA NEGATIVE (NEGATIVE); RESPIRATORY SYNCYTIAL VIR NAA NEGATIVE (NEGATIVE)
[2024-06-22 20:24] LABS: POTASSIUM,K 2.3 mEq/L (3.5-5.1)
[2024-06-22] MEDS: Potassium Chloride 20 MEQ Tab.ER PO ONE (21:04)
[2024-06-22] MEDS: Potassium Chloride 10 MEQ in Premix Bag 1 BAG IV SCH (21:05)
[2024-06-22 21:15] LABS: APPEARANCE,URINE CLEAR (Clear); BILIRUBIN,URINE NEGATIVE (Negative); COLOR,URINE YELLOW (Yellow); GLUCOSE,URINE NEGATIVE (Negative); KETONES,URINE NEGATIVE (Negative); LEUKOCYTE ESTERASE,URINE 1+ (Negative); NITRITE,URINE NEGATIVE (Negative); OCCULT BLOOD,URINE NEGATIVE (Negative); PH,URINE 5.5 (5.0-8.0); PROTEIN,URINE 1+ (Negative); UROBILINOGEN,URINE 0.2 (0.2-1.0)
[2024-06-22 21:27] LABS: BACTERIA,URINE MODERATE /hpf (FEW); MUCUS,URINE MODERATE /hpf (FEW); RBC,URINE 0-5 /hpf (0-5); WBC,URINE >100 /hpf (0-5)
[2024-06-22] MEDS: Levofloxacin/Dextrose 5%-Water 750 MG in Premix Bag 1 BAG IV ONE (23:24)
[2024-06-22 23:41] LABS: LACTIC ACID 2.1 mmol/L (0.4-2.0)
[2024-06-23] MEDS: Sodium Chloride 0.9% 500 ML IV ONE (01:14)
[2024-06-23] MEDS: Ondansetron 4 MG/2 ML SDV IVPUSH ONE (01:29)
[2024-06-23] MEDS: Acetaminophen 325 MG Tab PO ONE (01:40)
[2024-06-23 02:47] LABS: HEMATOCRIT 32.1 % (37.0-47.0); MEAN CORPUSCULAR HEMOGLOBIN 29.9 pg (28.0-32.0); MEAN CORPUSCULAR VOLUME 90.7 fl (83.0-99.0); MEAN PLATELET VOLUME 8.6 fl (9.4-12.3); RED BLOOD CELL COUNT 3.54 M/mm3 (4.10-5.30); WHITE BLOOD CELL COUNT,WBC 6.88 K/mm3 (3.9-11.3)
[2024-06-23 02:49] LABS: HEMOGLOBIN 10.6 gm/dl (12.0-16.0); PLATELET COUNT,PLT 335 K/mm3 (150-400)
[2024-06-23 03:01] LABS: ANION GAP 14.6 (5-15); BUN/CREATININE RATIO 31.4 (14-18); CREATININE 1.4 mg/dL (0.55-1.02); EST CRCL DRUG DOSING (CG) 46.75 mL/min; POTASSIUM,K 2.6 mEq/L (3.5-5.1)
[2024-06-23 03:13] LABS: CALCIUM 8.3 mg/dL (8.5-10.1)
[2024-06-23 03:48] LABS: BAND PERCENT MAN 0 % (0-10); BASOPHILS PERCENT MAN 0 (0.1-1.2); EOSINOPHILS PERCENT MAN 2 % (0.7-5.8); LYMPHOCYTES % ATYPICAL MANUAL 0 %; LYMPHOCYTES PERCENT MAN 35 % (20-40); MONOCYTES PERCENT MAN 2 % (2-10); PLATELET COUNT ESTIMATE ADEQUATE
[2024-06-23] MEDS: Potassium Chloride 20 MEQ Tab.ER PO ONE (07:42)
[2024-06-23] MEDS ORDERED: Sodium Chloride 0.9% 250 ML IV SCH (07:45)
[2024-06-23] MEDS: Potassium Chloride 10 MEQ in Premix Bag 1 BAG IV SCH (07:51)
[2024-06-23] MEDS: Sodium Chloride 0.9% 1,000 ML IV SCH (07:51)
[2024-06-23] MEDS ORDERED: Acetaminophen 325 MG Tab PO PRN (09:13)
[2024-06-23] MEDS: Acetaminophen 325 MG Tab PO PRN (10:21)
[2024-06-23] MEDS: Pantoprazole 40 MG Tab.CR PO ONE (13:58)
[2024-06-23] MEDS: LORazepam 0.5 MG Tab PO PRN (15:25)
[2024-06-23 15:32] LABS: ANION GAP 10.4 (5-15); BUN/CREATININE RATIO 28.2 (14-18); CALCIUM 8.8 mg/dL (8.5-10.1); CREATININE 1.1 mg/dL (0.55-1.02); EST CRCL DRUG DOSING (CG) 59.5 mL/min; POTASSIUM,K 3.4 mEq/L (3.5-5.1)
[2024-06-23] MEDS: Levofloxacin/Dextrose 5%-Water 750 MG in Premix Bag 1 BAG IV SCH ×2 (21:29→23:49)
[2024-06-24] MEDS: Potassium Chloride 20 MEQ Tab.ER PO ONE (00:05)
[2024-06-24] MEDS: Ondansetron 4 MG Tab.DIS PO PRN (07:50)
[2024-06-24] MEDS: Enoxaparin 40 MG/0.4 ML Syringe SUBCUT SCH (07:55)
[2024-06-24 08:59] LABS: ANION GAP 12.2 (5-15); BUN/CREATININE RATIO 26.7 (14-18); CALCIUM 9.1 mg/dL (8.5-10.1); CREATININE 0.9 mg/dL (0.55-1.02); EST CRCL DRUG DOSING (CG) 72.72 mL/min; POTASSIUM,K 3.2 mEq/L (3.5-5.1)
[2024-06-24] MEDS: Sodium Chloride 0.9% 1,000 ML IV SCH (09:58)
[2024-06-24] MEDS: Magnesium Sulfate/Water Premix 2 GM in Premix Bag 1 BAG IV ONE (09:59)
[2024-06-24] MEDS: Potassium Chloride 10 MEQ in Premix Bag 1 BAG IV SCH (12:09)
[2024-06-24] MEDS: Potassium Chloride 20 MEQ Tab.ER PO SCH (12:30)
[2024-06-24 17:57] VITALS: BP 109/79; PULSE 80
== END 2024-06-24 18:54 | disposition home or self-care (01) | DRG 683 ==
LOC: JD.ED 18:45 → JD.MS 23:00
PROVIDERS: ADMIT Family Medicine; ATTEND Internal Medicine
DX: N17.9 Acute kidney failure, unspecified (principal); N39.0 Urinary tract infection, site not specified; K52.9 Noninfective gastroenteritis and colitis, unspecified; E87.6 Hypokalemia; E86.1 Hypovolemia; I10 Essential (primary) hypertension; F41.9 Anxiety disorder, unspecified; E86.0 Dehydration; M19.90 Unspecified osteoarthritis, unspecified site; I95.9 Hypotension, unspecified; R94.31 Abnormal electrocardiogram [ECG] [EKG]; Z88.0 Allergy status to penicillin; Z88.1 Allergy status to other antibiotic agents; Z88.8 Allergy status to other drugs, medicaments and biological substances; Z98.51 Tubal ligation status; Z98.84 Bariatric surgery status; Z90.89 Acquired absence of other organs; Z91.030 Bee allergy status; Z87.442 Personal history of urinary calculi; Z87.891 Personal history of nicotine dependence; Z90.710 Acquired absence of both cervix and uterus; Z98.890 Other specified postprocedural states; Z79.899 Other long term (current) drug therapy
CPT/HCPCS: 0241U; 36415; 71045; 71045-26; 80048; 80053; 81001; 83605; 83735; 84484; 84703; 85007; 85025; 85027; 87040; 87086; 87154; 93005; 93010; 96361; 96365; 96366; 99222; 99285; 99285-25; A9270-GY; J1650; J1956; J3475; J3480; J3490; J7030